=== PATIENT | female | born 1975 | race American Indian/Alaskan Native ===

== ENCOUNTER 2016-08-07 18:21 | Emergency (ER) | payer MEDICAID ==
[2016-08-07 18:49] VITALS: BP 137/74
== END 2016-08-07 21:48 | disposition left against medical advice (07) ==
LOC: DL.ED 18:21
DX: Z53.21 Procedure and treatment not carried out due to patient leaving prior to being seen by health care provider (principal)
CPT/HCPCS: 99282

== ENCOUNTER 2016-09-04 19:54 | Emergency (ER) | payer MEDICAID ==
[2016-09-04 21:24] VITALS: BP 134/81
== END 2016-09-04 22:08 | disposition left against medical advice (07) ==
LOC: DL.ED 19:54
DX: Z53.21 Procedure and treatment not carried out due to patient leaving prior to being seen by health care provider (principal)

== ENCOUNTER 2016-09-19 14:26 | Emergency (ER) | payer MEDICAID ==
--- NOTE | 2016-09-19 15:12 | EDM.PDOC ---
ED HPI GENERAL MEDICAL PROBLEM - General Chief Complaint: Skin Complaint Stated Complaint: RT LEG BLEEDING Time Seen by Provider: 09/19/16 15:09 Source of Information: Reports: Patient History Limitations: Reports: No Limitations - History of Present Illness INITIAL COMMENTS - FREE TEXT/NARRATIVE: Pt states that she has a wound to her right tay that would not stop bleeding. States that she had a bug bite that she scratched and it has gotten worse. Open ulcer appearing wound to right tay. Bleeding controlled currently. no drainage noted Onset Date: 08/29/16 Associated Symptoms: Reports: No Other Symptoms - Related Data Allergies Allergy/AdvReac Type Severity Reaction Status Date / Time No Known Allergies Allergy Verified 09/19/16 14:43 Home Meds: Home Meds Ibuprofen 400 mg PO Q6H PRN 12/28/14 [History] Past Medical History - Past Health History Medical/Surgical History: Denies Medical/Surgical History HEENT History: Reports: None Cardiovascular History: Reports: Other (See Below) Other Cardiovascular History: VARICOSE VEINS Respiratory History: Reports: Bronchitis, Recurrent Other Respiratory History: HX OF UPPER RESPIRATORY INFECTION Gastrointestinal History: Reports: None Genitourinary History: Reports: None Other Musculoskeletal History: RIGHT TENNIS ELBOW Neurological History: Reports: None Psychiatric History: Reports: None Endocrine/Metabolic History: Reports: None Hematologic History: Reports: None Immunologic History: Reports: None Oncologic (Cancer) History: Reports: None Dermatologic History: Reports: None - Infectious Disease History Infectious Disease History: Reports: Chicken Pox - Past Surgical History Head Surgeries/Procedures: Reports: None Other Female Surgeries/Procedures: IUD IMPLANT Musculoskeletal Surgical History: Reports: Other (See Below) Other Musculoskeletal Surgeries/Procedures:: right ankle surgery Social & Family History - Family History Family Medical History: Noncontributory - Tobacco Use Smoking Status *Q: Never Smoker Second Hand Smoke Exposure: No - Caffeine Use Caffeine Use: Reports: Soda - Alcohol Use Days Per Week of Alcohol Use: 0 - Recreational Drug Use Recreational Drug Use: No ED ROS GENERAL - Review of Systems Review Of Systems: ROS reveals no pertinent complaints other than HPI. ED EXAM, SKIN/RASH Exam: See Below Exam Limited By: No Limitations General Appearance: Alert, WD/WN, No Apparent Distress Respiratory/Chest: No Respiratory Distress, Lungs Clear, Normal Breath Sounds, No Accessory Muscle Use, Chest Non-Tender Cardiovascular: Normal Peripheral Pulses, Regular Rate, Rhythm, No Edema, No Gallop, No JVD, No Murmur, No Rub Extremities: Normal Inspection, Normal Range of Motion, Non-Tender, No Pedal Edema, Normal Capillary Refill Skin: Warm, Dry, Erythema, Increased Warmth, Wound/Incision (ulcer appearing wound approximately 1.5 cm in diameter. ) Location, Skin: Lower Extremity, Right Characteristics: Confluent, Erythematous Associated features: Warmth, Induration, Inflammation Course - Vital Signs Last Recorded V/S: Last Vital Signs Temp 96.8 F 09/19/16 15:47 Pulse 79 09/19/16 15:47 Resp 18 09/19/16 15:47 BP 120/70 09/19/16 15:47 Pulse Ox 98 09/19/16 15:47 - Orders/Labs/Meds Orders: Active Orders 24 hr Category Date Time Status CBC WITH AUTO DIFF [HEME] Stat Lab 09/19/16 15:20 Results SEDIMENTATION RATE MANUAL [HEME] Stat Lab 09/19/16 15:20 Results Labs: Laboratory Tests 09/19/16 09/19/16 09/19/16 Range/Units 15:20 15:20 15:20 WBC 8.1 (5.0-10.0) 10^3/uL RBC 4.70 (4.2-5.4) 10^6/uL Hgb 12.5 (12.0-16.0) g/dL Hct 38.1 (37.0-47.0) % MCV 81.1 (80-100) fL MCH 26.6 L (27.0-34.0) pg MCHC 32.8 L (33.0-35.0) g/dL Plt Count 308 (150-450) 10^3/uL Neut % (Auto) 59.3 (42.2-75.2) % Lymph % (Auto) 27.7 (20.5-50.1) % [place] % (Auto) 7.1 (2-8) % Eos % (Auto) 5.5 H (1.0-3.0) % Baso % (Auto) 0.4 (0.0-1.0) % Sodium 137 (135-145) mmol/L Potassium 3.6 (3.6-5.0) mmol/L Chloride 104 (101-111) mmol/L Carbon Dioxide 26.0 (21.0-31.0) mmol/L Anion Gap 10.6 BUN 10 (7-18) mg/dL Creatinine 0.7 (0.6-1.3) mg/dL Est Cr Clr Drug Dosing 105.83 mL/min Estimated GFR (MDRD) > 60 Glucose 99 (74-105) mg/dL Lactic Acid 1.3 (0.5-2.2) mmol/L Calcium 8.4 (8.4-10.2) mg/dl C-Reactive Protein (0.0-1.3) mg/dL 09/19/16 Range/Units 15:20 WBC (5.0-10.0) 10^3/uL RBC (4.2-5.4) 10^6/uL Hgb (12.0-16.0) g/dL Hct (37.0-47.0) % MCV (80-100) fL MCH (27.0-34.0) pg MCHC (33.0-35.0) g/dL Plt Count (150-450) 10^3/uL Neut % (Auto) (42.2-75.2) % Lymph % (Auto) (20.5-50.1) % [place] % (Auto) (2-8) % Eos % (Auto) (1.0-3.0) % Baso % (Auto) (0.0-1.0) % Sodium (135-145) mmol/L Potassium (3.6-5.0) mmol/L Chloride (101-111) mmol/L Carbon Dioxide (21.0-31.0) mmol/L Anion Gap BUN (7-18) mg/dL Creatinine (0.6-1.3) mg/dL Est Cr Clr Drug Dosing mL/min Estimated GFR (MDRD) Glucose (74-105) mg/dL Lactic Acid (0.5-2.2) mmol/L Calcium (8.4-10.2) mg/dl C-Reactive Protein 1.3 (0.0-1.3) mg/dL - Re-Assessments/Exams Free Text/Narrative Re-Assessment/Exam: 09/19/16 17:03 Spoke with lab who states that pt's ESR is 20. Will dc patient Departure - Departure Time of Disposition: 17:03 Disposition: Home, Self-Care 01 Condition: Good Clinical Impression: Open wound of leg without complication Qualifiers: Encounter type: initial encounter Laterality: left Qualified Code(s): S81.802A - Unspecified open wound, left lower leg, initial encounter - Discharge Information Instructions: Animal Bite, [id number], Wound Infection, [id number] Forms: ED Department Discharge Additional Instructions: Take the bactrim for 1 week. Follow up in clinic for evaluation of wound. You may need further treatment is not healing. Keep the wound clean and dry. - My Orders Last 24 Hours: My Active Orders 09/19/16 15:20 CBC WITH AUTO DIFF [HEME] Stat SEDIMENTATION RATE MANUAL [HEME] Stat - Assessment/Plan Last 24 Hours: My Active Orders 09/19/16 15:20 CBC WITH AUTO DIFF [HEME] Stat SEDIMENTATION RATE MANUAL [HEME] Stat
[2016-09-19 15:47] VITALS: BP 120/70
[2016-09-19 15:48] LABS: CHLORIDE,CL 104 mmol/L (101-111); SODIUM,NA 137 mmol/L (135-145)
== END 2016-09-19 17:25 | disposition home or self-care (01) ==
LOC: DL.ED 14:26
DX: S81.801A Unspecified open wound, right lower leg, initial encounter (principal); W57.XXXA Bitten or stung by nonvenomous insect and other nonvenomous arthropods, initial encounter
CPT/HCPCS: 36415; 80048; 83605; 85025; 85651; 86140; 99283

== ENCOUNTER 2017-03-22 20:31 | Emergency (ER) | payer MEDICAID | END 2017-03-22 22:41 | disposition left against medical advice (07) | LOC: DL.ED 20:31 | DX: Z53.21 Procedure and treatment not carried out due to patient leaving prior to being seen by health care provider (principal) ==

== ENCOUNTER 2017-03-24 11:39 | Emergency (ER) | payer MEDICAID ==
[2017-03-24] MEDS ORDERED: Lidocaine 1% 30 ML SDV INJECT ONE (12:11)
--- NOTE | 2017-03-24 13:02 | EDM.PDOC ---
ED HPI GENERAL MEDICAL PROBLEM - General Chief Complaint: Back Pain or Injury Stated Complaint: LOWER BACK PAIN Time Seen by Provider: 03/24/17 12:00 Source of Information: Reports: Patient, RN, RN Notes Reviewed History Limitations: Reports: No Limitations - History of Present Illness INITIAL COMMENTS - FREE TEXT/NARRATIVE: Pt presents to the ER with c/o back pain which began on Saturday. She denies injury, heavy lifting, repetitive motion, or prior back problems. She states the pain is more intense when putting weight on the right leg, as pain shoots down the right leg. She states it feels better to sit forward. Pt denies numbness and tingling. She rates the pain 5/10. She also states she has a painful lump on her right calf that developed yesterday. Onset: Sudden Onset Date: 03/22/17 Location: Reports: Back, Lower Extremity, Right Quality: Reports: Stabbing, Throbbing Improves with: Reports: None Worsens with: Reports: None Associated Symptoms: Reports: No Other Symptoms. Denies: Fever/Chills, Nausea/ Vomiting, Shortness of Breath Right Lower Back Pain Score (Numeric/FACES): 5 - Related Data Allergies Allergy/AdvReac Type Severity Reaction Status Date / Time No Known Allergies Allergy Verified 03/24/17 11:55 Home Meds: Home Meds Ibuprofen 400 mg PO Q6H PRN 12/28/14 [History] Past Medical History - Past Health History Medical/Surgical History: Denies Medical/Surgical History HEENT History: Reports: None Cardiovascular History: Reports: Other (See Below) Other Cardiovascular History: VARICOSE VEINS Respiratory History: Reports: Bronchitis, Recurrent Other Respiratory History: HX OF UPPER RESPIRATORY INFECTION Gastrointestinal History: Reports: None Genitourinary History: Reports: None Other Musculoskeletal History: RIGHT TENNIS ELBOW Neurological History: Reports: None Psychiatric History: Reports: None Endocrine/Metabolic History: Reports: None Hematologic History: Reports: None Immunologic History: Reports: None Oncologic (Cancer) History: Reports: None Dermatologic History: Reports: None - Infectious Disease History Infectious Disease History: Reports: Chicken Pox - Past Surgical History Head Surgeries/Procedures: Reports: None Other Female Surgeries/Procedures: IUD IMPLANT Musculoskeletal Surgical History: Reports: Other (See Below) Other Musculoskeletal Surgeries/Procedures:: right ankle surgery Social & Family History - Family History Family Medical History: Noncontributory - Tobacco Use Smoking Status *Q: Never Smoker Second Hand Smoke Exposure: No - Caffeine Use Caffeine Use: Reports: Coffee, Soda - Alcohol Use Days Per Week of Alcohol Use: 0 - Recreational Drug Use Recreational Drug Use: No ED ROS GENERAL - Review of Systems Review Of Systems: ROS reveals no pertinent complaints other than HPI. ED EXAM, SKIN/RASH Exam: See Below Exam Limited By: No Limitations General Appearance: Alert, WD/WN, Mild Distress Eye Exam: Bilateral Eye: EOMI, Normal Inspection Ears: Normal External Exam, Hearing Grossly Normal Nose: Normal Inspection Throat/Mouth: Normal Inspection, Normal Voice, No Airway Compromise Head: Atraumatic, Normocephalic Neck: Normal Inspection, Supple, Non-Tender, Full Range of Motion Respiratory/Chest: No Respiratory Distress, Lungs Clear, Normal Breath Sounds, No Accessory Muscle Use, Chest Non-Tender Cardiovascular: Normal Peripheral Pulses, Regular Rate, Rhythm, No Edema, No Gallop, No JVD, No Murmur, No Rub Peripheral Pulses: 2+: Radial (L), Radial (R), Dorsalis Pedis (L), Dorsalis Pedis (R) GI/Abdominal: Normal Bowel Sounds, Soft, Non-Tender, No Organomegaly, No Distention, No Abnormal Bruit, No Mass (Female) Exam: Deferred Rectal (Female) Exam: Deferred Back Exam: Normal Inspection, CVA Tenderness (R), Decreased Range of Motion Extremities: Leg Pain, Limited Range of Motion (right leg), Increased Warmth ( right calf) Neurological: Alert, Oriented, CN II-XII Intact, Normal Cognition, Normal Reflexes, No Motor/Sensory Deficits Psychiatric: Normal Affect, Normal Mood, Tearful Skin: Warm, Dry, Intact, Normal Color, No Rash Location, Skin: Lower Extremity, Right Lymphatic: No Adenopathy Course - Vital Signs Last Recorded V/S: Last Vital Signs Temp 97.6 F 03/24/17 11:55 Pulse 95 03/24/17 11:55 Resp 20 03/24/17 11:55 BP 109/46 L 03/24/17 13:22 Pulse Ox 95 03/24/17 11:55 - Orders/Labs/Meds Orders: Active Orders 24 hr Category Date Time Status Peripheral IV Care [RC] . DIRECTED Care 03/24/17 13:56 Active CULTURE WOUND [RM] Stat Lab 03/24/17 12:45 Received Peripheral IV Insertion Adult [OM.PC] Stat Oth 03/24/17 13:56 Ordered Labs: Laboratory Tests 03/24/17 03/24/17 03/24/17 Range/Units 12:45 13:17 13:17 WBC 8.4 (5.0-10.0) 10^3/uL RBC 4.79 (4.2-5.4) 10^6/uL Hgb 12.6 (12.0-16.0) g/dL Hct 39.1 (37.0-47.0) % MCV 81.6 (80-100) fL MCH 26.3 L (27.0-34.0) pg MCHC 32.2 L (33.0-35.0) g/dL Plt Count 337 (150-450) 10^3/uL Neut % (Auto) 69.7 (42.2-75.2) % Lymph % (Auto) 21.6 (20.5-50.1) % [place] % (Auto) 5.8 (2-8) % Eos % (Auto) 2.5 (1.0-3.0) % Baso % (Auto) 0.4 (0.0-1.0) % D-Dimer, Quantitative 322 (0-400) ng/mL Sodium (135-145) mmol/L Potassium (3.6-5.0) mmol/L Chloride (101-111) mmol/L Carbon Dioxide (21.0-31.0) mmol/L Anion Gap BUN (7-18) mg/dL Creatinine (0.6-1.3) mg/dL Est Cr Clr Drug Dosing mL/min Estimated GFR (MDRD) BUN/Creatinine Ratio Glucose (74-105) mg/dL Calcium (8.4-10.2) mg/dl Total Bilirubin (0.2-1.0) mg/dL AST (10-42) IU/L ALT (10-60) IU/L Alkaline Phosphatase (42-121) IU/L Total Protein (6.7-8.2) g/dl Albumin (3.2-5.5) g/dl Globulin Albumin/Globulin Ratio Urine Color Red (YELLOW) Urine Appearance Cloudy (CLEAR) Urine pH 6.0 (5.0-9.0) Ur Specific [place] 1.020 (1.005-1.030) Urine Protein >=300 H (NEGATIVE) Urine Glucose (UA) Negative (NEGATIVE) Urine Ketones Trace H (NEGATIVE) Urine Occult Blood Large H (NEGATIVE) Urine Nitrite Negative (NEGATIVE) Urine Bilirubin Moderate H (NEGATIVE) Urine Urobilinogen 2.0 H (0.2-1.0) mg/dL Ur Leukocyte Esterase Small H (NEGATIVE) Urine RBC 20-30 H /HPF Urine WBC 10-20 H (0-5/HPF) /HPF Ur Epithelial Cells Many H /HPF Amorphous Sediment Few (0/HPF) /HPF Urine Bacteria Moderate H (0-FEW/HPF) /HPF Urine Mucus Few H /LPF 03/24/17 Range/Units 13:17 WBC (5.0-10.0) 10^3/uL RBC (4.2-5.4) 10^6/uL Hgb (12.0-16.0) g/dL Hct (37.0-47.0) % MCV (80-100) fL MCH (27.0-34.0) pg MCHC (33.0-35.0) g/dL Plt Count (150-450) 10^3/uL Neut % (Auto) (42.2-75.2) % Lymph % (Auto) (20.5-50.1) % [place] % (Auto) (2-8) % Eos % (Auto) (1.0-3.0) % Baso % (Auto) (0.0-1.0) % D-Dimer, Quantitative (0-400) ng/mL Sodium 136 (135-145) mmol/L Potassium 3.9 (3.6-5.0) mmol/L Chloride 103 (101-111) mmol/L Carbon Dioxide 27.0 (21.0-31.0) mmol/L Anion Gap 9.9 BUN 11 (7-18) mg/dL Creatinine 0.7 (0.6-1.3) mg/dL Est Cr Clr Drug Dosing 103.89 mL/min Estimated GFR (MDRD) > 60 BUN/Creatinine Ratio 15.71 Glucose 98 (74-105) mg/dL Calcium 8.7 (8.4-10.2) mg/dl Total Bilirubin 0.7 (0.2-1.0) mg/dL AST 18 (10-42) IU/L ALT 11 (10-60) IU/L Alkaline Phosphatase 93 (42-121) IU/L Total Protein 8.3 H (6.7-8.2) g/dl Albumin 3.3 (3.2-5.5) g/dl Globulin 5.0 Albumin/Globulin Ratio 0.66 Urine Color (YELLOW) Urine Appearance (CLEAR) Urine pH (5.0-9.0) Ur Specific [place] (1.005-1.030) Urine Protein (NEGATIVE) Urine Glucose (UA) (NEGATIVE) Urine Ketones (NEGATIVE) Urine Occult Blood (NEGATIVE) Urine Nitrite (NEGATIVE) Urine Bilirubin (NEGATIVE) Urine Urobilinogen (0.2-1.0) mg/dL Ur Leukocyte Esterase (NEGATIVE) Urine RBC /HPF Urine WBC (0-5/HPF) /HPF Ur Epithelial Cells /HPF Amorphous Sediment (0/HPF) /HPF Urine Bacteria (0-FEW/HPF) /HPF Urine Mucus /LPF Meds: Medications Discontinued Medications Generic Name Dose Route Start Last Admin Trade Name Freq PRN Reason Stop Dose Admin Sodium Chloride 1,000 mls @ 999 mls/hr 03/24/17 13:56 03/24/17 14:04 Normal Saline IV 03/24/17 14:56 999 mls/hr .BOLUS ONE Administration Lidocaine HCl 30 ml 03/24/17 12:11 03/24/17 12:15 Xylocaine-Mpf 1% INJECT 03/24/17 12:12 30 ml ONETIME ONE Administration Methylprednisolone Sodium Succinate 125 mg 03/24/17 15:17 03/24/17 15:21 Solu-Medrol IVPUSH 03/24/17 15:18 125 mg ONETIME ONE Administration Sodium Chloride 10 ml 03/24/17 13:56 03/24/17 14:04 Saline Flush FLUSH 10 ml ASDIRECTED PRN Administration Keep Vein Open - Radiology Interpretation Free Text/Narrative:: CT abdomen and pelvis: Left adnexal dermoid tumor. Malpositioned intrauterine device. Distended gallbladder. See Rad report. Departure - Departure Time of Disposition: 15:12 Disposition: Home, Self-Care 01 Condition: Fair Clinical Impression: Lumbosacral radiculopathy, Abscess, Bacterial vaginal infection - Discharge Information Instructions: Back Injury Prevention, [id number], Muscle Strain, Qxtu-en-Oohs , Back Pain, Adult, [id number]-[id number] Referrals: PCP,None [Primary Care Provider] - Forms: ED Department Discharge Additional Instructions: RX: Medrol dose pack, Bactrim, Doxycycline, Metrodiazole Follow up with your primary care facility next week - My Orders Last 24 Hours: My Active Orders 03/24/17 12:45 CULTURE WOUND [RM] Stat 03/24/17 13:56 Peripheral IV Care [RC] . DIRECTED Peripheral IV Insertion Adult [OM.PC] Stat - Assessment/Plan Last 24 Hours: My Active Orders 03/24/17 12:45 CULTURE WOUND [RM] Stat 03/24/17 13:56 Peripheral IV Care [RC] . DIRECTED Peripheral IV Insertion Adult [OM.PC] Stat
[2017-03-24 13:23] VITALS: BP 109/46
[2017-03-24] MEDS ORDERED: Sodium Chloride 0.9% 10 ML Syringe FLUSH PRN (13:56)
[2017-03-24] MEDS ORDERED: Sodium Chloride 0.9% 1,000 ML IV ONE (13:56)
[2017-03-24 13:58] LABS: ANION GAP 9.9; CHLORIDE,CL 103 mmol/L (101-111); SODIUM,NA 136 mmol/L (135-145)
[2017-03-24] MEDS ORDERED: methylPREDNISolone Sodium Succinate 125 MG/2 ML SDV IVPUSH ONE (15:17)
== END 2017-03-24 15:33 | disposition home or self-care (01) ==
LOC: DL.ED 11:39
DX: M54.17 Radiculopathy, lumbosacral region (principal); L02.415 Cutaneous abscess of right lower limb; N76.0 Acute vaginitis
CPT/HCPCS: 36415; 74176; 80053; 81001; 85025; 85379; 87070; 96361; 96374; 99283; J2930; J7030; J7050; 87077; 87186

== ENCOUNTER 2017-03-30 20:38 | Emergency (ER) | payer MEDICAID ==
[2017-03-30 21:55] VITALS: BP 121/69
[2017-03-30 22:08] LABS: CHLORIDE,CL 98 mmol/L (101-111); SODIUM,NA 135 mmol/L (135-145)
--- NOTE | 2017-03-30 22:46 | EDM.PDOC ---
ED HPI GENERAL MEDICAL PROBLEM - General Chief Complaint: Skin Complaint Stated Complaint: SORE ON LEG, [id number] Time Seen by Provider: 03/30/17 21:00 Source of Information: Reports: Patient History Limitations: Reports: No Limitations - History of Present Illness INITIAL COMMENTS - FREE TEXT/NARRATIVE: ED with c/o increased pain and swelling to right calf with pain radiating back of thigh into buttock. Was seen one week ago with cellulitis and started antibiotics, Reports has continued to take as prescribed. Swlling worsening since last gonzales. Notes less itching to lower leg than prior,. Has remote hx of cellutits to leg. 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 Right Knee Pain Score (Numeric/FACES): 6 - Related Data Allergies Allergy/AdvReac Type Severity Reaction Status Date / Time No Known Allergies Allergy Verified 03/30/17 20:47 Home Meds: Home Meds Ibuprofen 400 mg PO Q6H PRN 12/28/14 [History] Past Medical History - Past Health History Medical/Surgical History: Denies Medical/Surgical History HEENT History: Reports: None Cardiovascular History: Reports: Other (See Below) Other Cardiovascular History: VARICOSE VEINS Respiratory History: Reports: Bronchitis, Recurrent Other Respiratory History: HX OF UPPER RESPIRATORY INFECTION Gastrointestinal History: Reports: None Genitourinary History: Reports: None Other Musculoskeletal History: RIGHT TENNIS ELBOW Neurological History: Reports: None Psychiatric History: Reports: None Endocrine/Metabolic History: Reports: None Hematologic History: Reports: None Immunologic History: Reports: None Oncologic (Cancer) History: Reports: None Dermatologic History: Reports: None - Infectious Disease History Infectious Disease History: Reports: Chicken Pox - Past Surgical History Head Surgeries/Procedures: Reports: None Other Female Surgeries/Procedures: IUD IMPLANT Musculoskeletal Surgical History: Reports: Other (See Below) Other Musculoskeletal Surgeries/Procedures:: right ankle surgery Social & Family History - Family History Family Medical History: Noncontributory - Tobacco Use Smoking Status *Q: Never Smoker Second Hand Smoke Exposure: No - Caffeine Use Caffeine Use: Reports: Soda - Alcohol Use Days Per Week of Alcohol Use: 0 - Recreational Drug Use Recreational Drug Use: No ED ROS GENERAL - Review of Systems Review Of Systems: See Below Constitutional: Reports: No Symptoms HEENT: Reports: No Symptoms Respiratory: Reports: No Symptoms Cardiovascular: Reports: No Symptoms Endocrine: Reports: No Symptoms GI/Abdominal: Reports: No Symptoms Musculoskeletal: Reports: Leg Pain, Muscle Stiffness Skin: Reports: Rash, Wound, Lumps (right lower leg) ED EXAM, SKIN/RASH Exam: See Below Exam Limited By: No Limitations General Appearance: Alert, Mild Distress Eye Exam: Bilateral Eye: EOMI Ears: Normal External Exam Nose: Normal Inspection Throat/Mouth: Normal Inspection, Normal Lips Head: Atraumatic, Normocephalic Neck: Normal Inspection, Supple, Full Range of Motion Respiratory/Chest: No Respiratory Distress, Lungs Clear, Normal Breath Sounds Cardiovascular: Normal Peripheral Pulses, Regular Rate, Rhythm Peripheral Pulses: 2+: Dorsalis Pedis (R) GI/Abdominal: Normal Bowel Sounds Extremities: Pedal Edema, Leg Pain, Increased Warmth, Redness, Other (right leg swelling from forefoot to above knee. Redness, large frim lump to posterior calf , tender to area, pain radiating from calf to buttock with palpation multiple scabbed area to right lower leg, purplish discoloration. Pedal pulse present ) Neurological: Alert, Oriented Psychiatric: Normal Affect, Normal Mood Skin: Warm, Wound/Incision Location, Skin: Lower Extremity, Right Characteristics: Maculopapular Associated features: Warmth, Tenderness, Swelling, Induration Course - Vital Signs Last Recorded V/S: Last Vital Signs Temp 97.6 F 03/30/17 21:54 Pulse 79 03/30/17 21:54 Resp 16 03/30/17 21:54 BP 121/69 03/30/17 21:54 Pulse Ox 96 03/30/17 21:54 - Orders/Labs/Meds Orders: Active Orders 24 hr Category Date Time Status CULTURE BLOOD [BC] Stat Lab 03/30/17 21:25 Received CULTURE BLOOD [BC] Stat Lab 03/30/17 21:28 Received Blood Culture x2 Reflex Set [OM.PC] Stat Oth 03/30/17 21:10 Ordered Labs: Laboratory Tests 03/30/17 03/30/17 03/30/17 Range/Units 21:25 21:25 21:25 WBC 9.6 (5.0-10.0) 10^3/uL RBC 4.71 (4.2-5.4) 10^6/uL Hgb 12.3 (12.0-16.0) g/dL Hct 38.6 (37.0-47.0) % MCV 82.0 (80-100) fL MCH 26.1 L (27.0-34.0) pg MCHC 31.9 L (33.0-35.0) g/dL Plt Count 369 (150-450) 10^3/uL Neut % (Auto) 59.2 (42.2-75.2) % Lymph % (Auto) 29.5 (20.5-50.1) % [place] % (Auto) 7.2 (2-8) % Eos % (Auto) 3.9 H (1.0-3.0) % Baso % (Auto) 0.2 (0.0-1.0) % D-Dimer, Quantitative (0-400) ng/mL Sodium 135 (135-145) mmol/L Potassium 3.3 L (3.6-5.0) mmol/L Chloride 98 L (101-111) mmol/L Carbon Dioxide 30.0 (21.0-31.0) mmol/L Anion Gap 10.3 BUN 13 (7-18) mg/dL Creatinine 0.7 (0.6-1.3) mg/dL Est Cr Clr Drug Dosing 105.83 mL/min Estimated GFR (MDRD) > 60 BUN/Creatinine Ratio 18.57 Glucose 86 (74-105) mg/dL Lactic Acid 1.1 (0.5-2.2) mmol/L Calcium 8.7 (8.4-10.2) mg/dl Total Bilirubin 0.4 (0.2-1.0) mg/dL AST 16 (10-42) IU/L ALT 11 (10-60) IU/L Alkaline Phosphatase 98 (42-121) IU/L Total Protein 8.2 (6.7-8.2) g/dl Albumin 3.4 (3.2-5.5) g/dl Globulin 4.8 Albumin/Globulin Ratio 0.71 /09/09 Range/Units 21:25 WBC (5.0-10.0) 10^3/uL RBC (4.2-5.4) 10^6/uL Hgb (12.0-16.0) g/dL Hct (37.0-47.0) % MCV (80-100) fL MCH (27.0-34.0) pg MCHC (33.0-35.0) g/dL Plt Count (150-450) 10^3/uL Neut % (Auto) (42.2-75.2) % Lymph % (Auto) (20.5-50.1) % [place] % (Auto) (2-8) % Eos % (Auto) (1.0-3.0) % Baso % (Auto) (0.0-1.0) % D-Dimer, Quantitative 811 H (0-400) ng/mL Sodium (135-145) mmol/L Potassium (3.6-5.0) mmol/L Chloride (101-111) mmol/L Carbon Dioxide (21.0-31.0) mmol/L Anion Gap BUN (7-18) mg/dL Creatinine (0.6-1.3) mg/dL Est Cr Clr Drug Dosing mL/min Estimated GFR (MDRD) BUN/Creatinine Ratio Glucose (74-105) mg/dL Lactic Acid (0.5-2.2) mmol/L Calcium (8.4-10.2) mg/dl Total Bilirubin (0.2-1.0) mg/dL AST (10-42) IU/L ALT (10-60) IU/L Alkaline Phosphatase (42-121) IU/L Total Protein (6.7-8.2) g/dl Albumin (3.2-5.5) g/dl Globulin Albumin/Globulin Ratio Meds: Medications Discontinued Medications Generic Name Dose Route Start Last Admin Trade Name Freq PRN Reason Stop Dose Admin Piperacillin Sod/Tazobactam 100 mls @ 200 mls/hr 03/30/17 22:51 03/30/17 23: 08 Sod 3.375 gm/ Sodium Chloride IV 03/30/17 23:20 200 mls/hr ONETIME ONE Administration Morphine Sulfate 2 mg 03/30/17 22:52 03/30/17 23:05 Morphine IVPUSH 03/30/17 22:53 2 mg ONETIME ONE Administration Ondansetron HCl 4 mg 03/30/17 22:52 03/30/17 23:03 Zofran IV 03/30/17 22:53 4 mg ONETIME ONE Administration Departure - Departure Time of Disposition: 23:05 Disposition: DC/Tfer to Acute Hospital 02 Condition: Good Clinical Impression: Cellulitis of right lower leg, Positive D-dimer, Lumbosacral radiculopathy Low back pain Qualifiers: Chronicity: unspecified Back pain laterality: unspecified Sciatica presence: unspecified whether sciatica present Qualified Code(s): M54.5 - Low back pain - Discharge Information Forms: ED Department Discharge - My Orders Last 24 Hours: My Active Orders 03/30/17 21:10 Blood Culture x2 Reflex Set [OM.PC] Stat 03/30/17 21:25 CULTURE BLOOD [BC] Stat 03/30/17 21:28 CULTURE BLOOD [BC] Stat - Assessment/Plan Last 24 Hours: My Active Orders 03/30/17 21:10 Blood Culture x2 Reflex Set [OM.PC] Stat 03/30/17 21:25 CULTURE BLOOD [BC] Stat 03/30/17 21:28 CULTURE BLOOD [BC] Stat
[2017-03-30] MEDS ORDERED: Piperacillin/Tazobactam 3.375 GM in Sodium Chloride 0.9% 100 ML IV ONE (22:51)
[2017-03-30] MEDS ORDERED: Ondansetron 4 MG/2 ML SDV IV ONE (22:52)
[2017-03-30] MEDS ORDERED: Morphine 2 MG/ML Syringe IVPUSH ONE (22:52)
== END 2017-03-30 23:26 ==
LOC: DL.ED 20:38
DX: L03.115 Cellulitis of right lower limb (principal); M54.17 Radiculopathy, lumbosacral region; R79.1 Abnormal coagulation profile
CPT/HCPCS: 36415; 80053; 83605; 85025; 85379; 87040; 96365; 96375; 99284; J2270; J2405; J2543; J7050

== ENCOUNTER 2017-04-02 11:19 | Emergency (ER) | payer MEDICAID ==
[2017-04-02 11:32] VITALS: BP 105/55
[2017-04-02] MEDS ORDERED: HYDROmorphone 1 MG/ML Syringe IVPUSH ONE (11:49)
[2017-04-02 12:14] LABS: ANION GAP 11.3; CHLORIDE,CL 101 mmol/L (101-111); SODIUM,NA 134 mmol/L (135-145)
--- NOTE | 2017-04-02 12:21 | EDM.PDOC ---
ED HPI GENERAL MEDICAL PROBLEM - General Chief Complaint: Back Pain or Injury Stated Complaint: IN BY AMBULANCE Time Seen by Provider: 04/02/17 11:40 Source of Information: Reports: Patient, RN, RN Notes Reviewed History Limitations: Reports: No Limitations - History of Present Illness INITIAL COMMENTS - FREE TEXT/NARRATIVE: Pt presents to the ER per [facility] with c/o severe right flank pain. She states this pain has been ongoing for quite some time. She was last seen for the pain, as well as pain in the right lower leg, on 03/30/17, at which time she was transferred to by ambulance. She was discharged from [facility] in yesterday. She returns with increased pain in the right flank, rating the pain at an 8, as well as pain in the right calf radiating up the back of the leg to the buttock area. Onset: Gradual, Unknown/Unsure Duration: Getting Worse Location: Reports: Back Quality: Reports: Stabbing, Throbbing Severity: Moderate Improves with: Reports: None Worsens with: Reports: Movement Associated Symptoms: Reports: No Other Symptoms Right Lower Back Pain Score (Numeric/FACES): 9 - Related Data Allergies Allergy/AdvReac Type Severity Reaction Status Date / Time No Known Allergies Allergy Verified 03/30/17 20:47 Home Meds: Home Meds Ibuprofen 400 mg PO Q6H PRN 12/28/14 [History] Linezolid [Zyvox] 600 mg PO BID 04/02/17 [History] Past Medical History - Past Health History Medical/Surgical History: Denies Medical/Surgical History HEENT History: Reports: None Cardiovascular History: Reports: Other (See Below) Other Cardiovascular History: VARICOSE VEINS Respiratory History: Reports: Bronchitis, Recurrent Other Respiratory History: HX OF UPPER RESPIRATORY INFECTION Gastrointestinal History: Reports: None Genitourinary History: Reports: None Other Musculoskeletal History: RIGHT TENNIS ELBOW Neurological History: Reports: None Psychiatric History: Reports: None Endocrine/Metabolic History: Reports: None Hematologic History: Reports: None Immunologic History: Reports: None Oncologic (Cancer) History: Reports: None Dermatologic History: Reports: None - Infectious Disease History Infectious Disease History: Reports: Chicken Pox - Past Surgical History Head Surgeries/Procedures: Reports: None Other Female Surgeries/Procedures: IUD IMPLANT Musculoskeletal Surgical History: Reports: Other (See Below) Other Musculoskeletal Surgeries/Procedures:: right ankle surgery Social & Family History - Family History Family Medical History: Noncontributory - Tobacco Use Smoking Status *Q: Never Smoker Second Hand Smoke Exposure: No - Caffeine Use Caffeine Use: Reports: Soda, Tea - Alcohol Use Days Per Week of Alcohol Use: 0 - Recreational Drug Use Recreational Drug Use: No ED ROS GENERAL - Review of Systems Review Of Systems: ROS reveals no pertinent complaints other than HPI. ED EXAM, GENERAL - Physical Exam Exam: See Below Exam Limited By: No Limitations General Appearance: Alert, WD/WN, Moderate Distress Eye Exam: Bilateral Eye: EOMI, Normal Inspection, PERRL Ears: Normal External Exam, Hearing Grossly Normal Nose: Normal Inspection Throat/Mouth: Normal Inspection, Normal Voice, No Airway Compromise Head: Atraumatic, Normocephalic Neck: Normal Inspection, Supple, Non-Tender, Full Range of Motion Respiratory/Chest: No Respiratory Distress, Lungs Clear, Normal Breath Sounds, No Accessory Muscle Use, Chest Non-Tender Cardiovascular: Normal Peripheral Pulses, Regular Rate, Rhythm, No Edema, No Gallop, No JVD, No Murmur, No Rub Peripheral Pulses: 2+: Radial (L), Radial (R), Dorsalis Pedis (L), Dorsalis Pedis (R) GI/Abdominal: Normal Bowel Sounds, Soft, Non-Tender, No Organomegaly, No Distention, No Abnormal Bruit, No Mass (Female) Exam: Deferred Rectal (Female) Exam: Deferred Back Exam: Normal Inspection, CVA Tenderness (R), Decreased Range of Motion, Muscle Spasm Extremities: Leg Pain, Limited Range of Motion, Increased Warmth, Redness, Other (Right lower leg wrapped with ANNA for circulation. ) Neurological: Alert, Oriented, CN II-XII Intact, Normal Cognition, Normal Gait, No Motor/Sensory Deficits Psychiatric: Normal Affect, Normal Mood Skin Exam: Warm, Dry, Intact, Normal Color, Other (Several areas of excoriation and different stages of healing on the lower legs) Lymphatic: No Adenopathy Course - Vital Signs Last Recorded V/S: Last Vital Signs Temp 97.8 F 04/02/17 11:31 Pulse 104 H 04/02/17 11:31 Resp 16 04/02/17 11:31 BP 105/55 L 04/02/17 11:31 Pulse Ox 97 04/02/17 11:31 - Orders/Labs/Meds Orders: Active Orders 24 hr Category Date Time Status Abdomen Ltd [US] Urgent Exams 04/02/17 11:46 Ordered Labs: Laboratory Tests 04/02/17 04/02/17 04/02/17 Range/Units 11:47 11:47 11:47 WBC 8.3 (5.0-10.0) 10^3/uL RBC 4.58 (4.2-5.4) 10^6/uL Hgb 11.8 L (12.0-16.0) g/dL Hct 37.3 (37.0-47.0) % MCV 81.4 (80-100) fL MCH 25.8 L (27.0-34.0) pg MCHC 31.6 L (33.0-35.0) g/dL Plt Count 339 (150-450) 10^3/uL Neut % (Auto) 71.3 (42.2-75.2) % Lymph % (Auto) 18.3 L (20.5-50.1) % Island % (Auto) 7.0 (2-8) % Eos % (Auto) 3.2 H (1.0-3.0) % Baso % (Auto) 0.2 (0.0-1.0) % PT 10.5 (9.0-12.0) SEC INR 1.0 (0.9-1.2) D-Dimer, Quantitative 658 H (0-400) ng/mL Sodium 134 L (135-145) mmol/L Potassium 3.3 L (3.6-5.0) mmol/L Chloride 101 (101-111) mmol/L Carbon Dioxide 25.0 (21.0-31.0) mmol/L Anion Gap 11.3 BUN 9 (7-18) mg/dL Creatinine 0.8 (0.6-1.3) mg/dL Est Cr Clr Drug Dosing 90.90 mL/min Estimated GFR (MDRD) > 60 BUN/Creatinine Ratio 11.25 Glucose 115 H (74-105) mg/dL Calcium 8.5 (8.4-10.2) mg/dl Total Bilirubin 0.4 (0.2-1.0) mg/dL AST 25 (10-42) IU/L ALT 12 (10-60) IU/L Alkaline Phosphatase 85 (42-121) IU/L Total Protein 7.7 (6.7-8.2) g/dl Albumin 3.1 L (3.2-5.5) g/dl Globulin 4.6 Albumin/Globulin Ratio 0.67 Urine Color (YELLOW) Urine Appearance (CLEAR) Urine pH (5.0-9.0) Ur Specific Randall (1.005-1.030) Urine Protein (NEGATIVE) Urine Glucose (UA) (NEGATIVE) Urine Ketones (NEGATIVE) Urine Occult Blood (NEGATIVE) Urine Nitrite (NEGATIVE) Urine Bilirubin (NEGATIVE) Urine Urobilinogen (0.2-1.0) mg/dL Ur Leukocyte Esterase (NEGATIVE) Urine RBC /HPF Urine WBC (0-5/HPF) /HPF Ur Epithelial Cells /HPF Amorphous Sediment (0/HPF) /HPF Urine Bacteria (0-FEW/HPF) /HPF Urine Mucus /LPF Urine HCG, Qual Urine Opiates Screen (NEGATIVE) Ur Oxycodone Screen (NEGATIVE) Urine Methadone Screen (NEGATIVE) Ur Barbiturates Screen (NEGATIVE) U Tricyclic Antidepress (NEGATIVE) Ur Phencyclidine Scrn (NEGATIVE) Ur Amphetamine Screen (NEGATIVE) U Methamphetamines Scrn (NEGATIVE) Urine MDMA Screen (NEGATIVE) U Benzodiazepines Scrn (NEGATIVE) Urine Cocaine Screen (NEGATIVE) U Marijuana (THC) Screen (NEGATIVE) Ethyl Alcohol < 5 mg/dL 04/02/17 04/02/17 04/02/17 Range/Units 11:57 11:57 11:57 WBC (5.0-10.0) 10^3/uL RBC (4.2-5.4) 10^6/uL Hgb (12.0-16.0) g/dL Hct (37.0-47.0) % MCV (80-100) fL MCH (27.0-34.0) pg MCHC (33.0-35.0) g/dL Plt Count (150-450) 10^3/uL Neut % (Auto) (42.2-75.2) % Lymph % (Auto) (20.5-50.1) % Island % (Auto) (2-8) % Eos % (Auto) (1.0-3.0) % Baso % (Auto) (0.0-1.0) % PT (9.0-12.0) SEC INR (0.9-1.2) D-Dimer, Quantitative (0-400) ng/mL Sodium (135-145) mmol/L Potassium (3.6-5.0) mmol/L Chloride (101-111) mmol/L Carbon Dioxide (21.0-31.0) mmol/L Anion Gap BUN (7-18) mg/dL Creatinine (0.6-1.3) mg/dL Est Cr Clr Drug Dosing mL/min Estimated GFR (MDRD) BUN/Creatinine Ratio Glucose (74-105) mg/dL Calcium (8.4-10.2) mg/dl Total Bilirubin (0.2-1.0) mg/dL AST (10-42) IU/L ALT (10-60) IU/L Alkaline Phosphatase (42-121) IU/L Total Protein (6.7-8.2) g/dl Albumin (3.2-5.5) g/dl Globulin Albumin/Globulin Ratio Urine Color Yellow (YELLOW) Urine Appearance Cloudy (CLEAR) Urine pH 7.5 (5.0-9.0) Ur Specific Randall 1.025 (1.005-1.030) Urine Protein Negative (NEGATIVE) Urine Glucose (UA) Negative (NEGATIVE) Urine Ketones Negative (NEGATIVE) Urine Occult Blood Negative (NEGATIVE) Urine Nitrite Negative (NEGATIVE) Urine Bilirubin Negative (NEGATIVE) Urine Urobilinogen 1.0 (0.2-1.0) mg/dL Ur Leukocyte Esterase Trace H (NEGATIVE) Urine RBC Not seen /HPF Urine WBC 5-10 H (0-5/HPF) /HPF Ur Epithelial Cells Moderate H /HPF Amorphous Sediment Few (0/HPF) /HPF Urine Bacteria Few (0-FEW/HPF) /HPF Urine Mucus Moderate H /LPF Urine HCG, Qual Negative Urine Opiates Screen Positive H (NEGATIVE) Ur Oxycodone Screen Negative (NEGATIVE) Urine Methadone Screen Negative (NEGATIVE) Ur Barbiturates Screen Negative (NEGATIVE) U Tricyclic Antidepress Negative (NEGATIVE) Ur Phencyclidine Scrn Negative (NEGATIVE) Ur Amphetamine Screen Negative (NEGATIVE) U Methamphetamines Scrn Negative (NEGATIVE) Urine MDMA Screen Negative (NEGATIVE) U Benzodiazepines Scrn Negative (NEGATIVE) Urine Cocaine Screen Negative (NEGATIVE) U Marijuana (THC) Screen Negative (NEGATIVE) Ethyl Alcohol mg/dL Meds: Medications Discontinued Medications Generic Name Dose Route Start Last Admin Trade Name Freq PRN Reason Stop Dose Admin Hydromorphone HCl 1 mg 04/02/17 11:49 04/02/17 12:24 Dilaudid IVPUSH 04/02/17 11:50 1 mg ONETIME ONE Administration - Radiology Interpretation Free Text/Narrative:: Lumbar/Sacrum/Coccyx xray: No sign of pathologic skeletal lesion, and no certain fracture or segmental dislocation sacrum/coccyx appreciated on today's exam See rad report - Re-Assessments/Exams Free Text/Narrative Re-Assessment/Exam: 04/02/17 13:27 Pt states last BM was last night. She states she took a stool softener yesterday. Departure - Departure Time of Disposition: 13:34 Disposition: Home, Self-Care 01 Condition: Fair Clinical Impression: Lumbosacral radiculopathy, Positive D-dimer, Cellulitis of right lower extremity Open wound of leg without complication Qualifiers: Encounter type: initial encounter Laterality: left Qualified Code(s): S81.802A - Unspecified open wound, left lower leg, initial encounter - Discharge Information Instructions: Back Injury Prevention, [id number], Muscle Strain, [id number] , Back Pain, Adult, Mwcm-[id number], Pain Medicine Instructions, [id number], Chronic Back Pain Forms: ED Department Discharge Additional Instructions: [facility] Ul[facility]ound at [facility] Radiology department Saturday04-03-17 at 9am (See pamphlet) RX: norflex, diclofenac, norco Follow up with your primary care facility as soon as possible. Use stool softeners and Miralax or generic brand daily. - My Orders Last 24 Hours: My Active Orders 04/02/17 11:46 Abdomen Ltd [US] Urgent - Assessment/Plan Last 24 Hours: My Active Orders 04/02/17 11:46 Abdomen Ltd [US] Urgent
--- NOTE | 2017-04-02 13:10 | CR ---
Clinical history: 41-year-old female with right flank pain (multilevel lower lumbar disc disease and arthritis on plain film of the lumbar spine and suggestion of "nondisplaced sacral fracture one view only). Interpretation: AP lateral views of the sacrum and coccyx confirm chronic lower lumbar disc disease and arthritis of the lumbosacral spine. IUD midline pelvis. No sign of pathologic skeletal lesion, and no certain fracture or segmental dislocation sacrum/coccyx appreciated on today's exam. Symmetric spacing normal-appearing SI joints and midline pubic symphysis.
--- NOTE | 2017-04-02 13:43 | CR ---
CLINICAL HISTORY: 41-year-old female with right flank pain. INTERPRETATION: AP lateral views lumbar spine and sacrum reveal some hypertrophic marginal spondylosi s throughout the thoracolumbar juncture, mid and lower lumbar spine. Transitional S1 vertebral body (lumbarized) but dense endplate sclerosis and hypertrophic marginal sp ondylosis lowest level. Subtle relative narrowing of the intervertebral disc space L5-S1 level again with marginal spondylosi s. No sign of pathologic skeletal lesion, lumbar fracture or spondylolisthesis. Symmetric spacing normal -appearing SI and hip joints. (IUD mid pelvis) . NOTE: Subtle lucent line posteriorly distal sacrum (on lateral view only) that could represent nondis placed fracture. Clinical? CONCLUSION: Chronic arthritic changes dorsal lumbar spine. Transitional S1 vertebral body. Lower lumb ar disc disease. (See comments regarding sacrum above).
== END 2017-04-02 13:52 | disposition home or self-care (01) ==
LOC: DL.ED 11:19
DX: S81.802A Unspecified open wound, left lower leg, initial encounter (principal); L03.115 Cellulitis of right lower limb; M54.17 Radiculopathy, lumbosacral region; R79.1 Abnormal coagulation profile; X58.XXXA Exposure to other specified factors, initial encounter
CPT/HCPCS: 36415; 72100; 72220; 80053; 80305; 81001; 81025; 85025; 85379; 85610; 96374; 99284; G0480; J1170

== ENCOUNTER 2017-04-04 20:12 | Emergency (ER) | payer MEDICAID ==
[2017-04-04 21:43] VITALS: BP 144/67
[2017-04-04] MEDS ORDERED: Ketorolac 30 MG/ML SDV IM ONE (23:28)
--- NOTE | 2017-04-04 23:31 | EDM.PDOC ---
ED HPI GENERAL MEDICAL PROBLEM - General Chief Complaint: Back Pain or Injury Stated Complaint: LOWER BACK PAIN [id number] Time Seen by Provider: 04/04/17 23:23 Source of Information: Reports: Patient, RN, RN Notes Reviewed History Limitations: Reports: No Limitations - History of Present Illness INITIAL COMMENTS - FREE TEXT/NARRATIVE: Pt presents to the ER with c/o low back pain. She states the pain has gotten worse from when she was previously seen. She states she saw someone at [facility] today and was told to use tylenol and ibuprofen as directed for pain. She states she has been doing this. She also states she had a gallbladder US done yesterday. Onset: Gradual Duration: Getting Worse Location: Reports: Back Quality: Reports: Sharp, Stabbing, Throbbing Severity: Moderate Improves with: Reports: None Worsens with: Reports: Movement Associated Symptoms: Reports: No Other Symptoms Treatments MANAGER NICU: Reports: Acetaminophen, NSAIDS Right Lower Back Pain Score (Numeric/FACES): 9 - Related Data Allergies Allergy/AdvReac Type Severity Reaction Status Date / Time No Known Allergies Allergy Verified 04/04/17 21:43 Home Meds: Home Meds Ibuprofen 400 mg PO Q6H PRN 12/28/14 [History] Linezolid [Zyvox] 600 mg PO BID 04/02/17 [History] Past Medical History - Past Health History Medical/Surgical History: Denies Medical/Surgical History HEENT History: Reports: None Cardiovascular History: Reports: Other (See Below) Other Cardiovascular History: VARICOSE VEINS Respiratory History: Reports: Bronchitis, Recurrent Other Respiratory History: HX OF UPPER RESPIRATORY INFECTION Gastrointestinal History: Reports: None Genitourinary History: Reports: None Other Musculoskeletal History: RIGHT TENNIS ELBOW Neurological History: Reports: None Psychiatric History: Reports: None Endocrine/Metabolic History: Reports: None Hematologic History: Reports: None Immunologic History: Reports: None Oncologic (Cancer) History: Reports: None Dermatologic History: Reports: None - Infectious Disease History Infectious Disease History: Reports: Chicken Pox - Past Surgical History Head Surgeries/Procedures: Reports: None Other Female Surgeries/Procedures: IUD IMPLANT Musculoskeletal Surgical History: Reports: Other (See Below) Other Musculoskeletal Surgeries/Procedures:: right ankle surgery Social & Family History - Family History Family Medical History: Noncontributory - Tobacco Use Smoking Status *Q: Never Smoker Second Hand Smoke Exposure: No - Caffeine Use Caffeine Use: Reports: Soda, Tea - Alcohol Use Days Per Week of Alcohol Use: 0 - Recreational Drug Use Recreational Drug Use: No ED ROS GENERAL - Review of Systems Review Of Systems: ROS reveals no pertinent complaints other than HPI. ED EXAM,LOWER BACK PAIN/INJURY - Physical Exam Exam: See Below Exam Limited By: No Limitations General Appearance: Alert, WD/WN, Moderate Distress Eye Exam: Bilateral Eye: EOMI, Normal Inspection Ears: Normal External Exam, Hearing Grossly Normal Nose: Normal Inspection Throat/Mouth: Normal Inspection, Normal Voice, No Airway Compromise Head: Atraumatic, Normocephalic Neck: Normal Inspection, Supple, Non-Tender, Full Range of Motion Respiratory/Chest: No Respiratory Distress, Lungs Clear, Normal Breath Sounds, No Accessory Muscle Use, Chest Non-Tender Cardiovascular: Normal Peripheral Pulses, Regular Rate, Rhythm, No Edema, No Gallop, No JVD, No Murmur, No Rub GI/Abdominal: Normal Bowel Sounds, Soft, Non-Tender, No Distention (Female) Exam: Deferred Rectal (Female) Exam: Deferred Back Exam: Normal Inspection, Decreased Range of Motion, Muscle Spasm Extremities: Normal Inspection, Non-Tender, No Pedal Edema, Normal Capillary Refill, Limited Range of Motion Neurological: Alert, Normal Mood/Affect, Normal Dorsiflexion, CN II-XII Intact, Normal Plantar Flexion, Normal Gait, Normal Reflexes, No Motor/Sensory Deficits , Oriented x 3 Psychiatric: Normal Affect, Normal Mood Skin Exam: Warm, Dry, Intact, Normal Color, Other (continues to deal with excoriation of the lower legs at different stages of healing. Right lower leg wrapped for compression) Lymphatic: No Adenopathy Course - Vital Signs Last Recorded V/S: Last Vital Signs Temp 97.2 F 04/04/17 21:35 Pulse 78 04/04/17 21:35 Resp 18 04/04/17 21:35 BP 144/67 H 04/04/17 21:35 Pulse Ox 99 04/04/17 21:35 - Orders/Labs/Meds Meds: Medications Discontinued Medications Generic Name Dose Route Start Last Admin Trade Name Freq PRN Reason Stop Dose Admin Ketorolac Tromethamine 60 mg 04/04/17 23:28 04/04/17 23:38 Toradol IM 04/04/17 23:29 60 mg ONETIME ONE Administration Orphenadrine Citrate 60 mg 04/04/17 23:30 04/04/17 23:35 Norflex IM 60 mg Q12H SINDHU Administration Departure - Departure Time of Disposition: 23:45 Disposition: Home, Self-Care 01 Condition: Fair Clinical Impression: Lumbosacral radiculopathy Low back pain Qualifiers: Chronicity: unspecified Back pain laterality: unspecified Sciatica presence: unspecified whether sciatica present Qualified Code(s): M54.5 - Low back pain - Discharge Information Instructions: Back Injury Prevention, Qqrg-[id number], Muscle Strain, Yldl-ph-Wpaf , Back Pain, Adult, Klnx-xo-Pmps Forms: ED Department Discharge Additional Instructions: Follow up with your primary care facility if no improvement. Ice and heat to the area as tolerated. Continue taking ibuprofen and tylenol as directed for the pain.
== END 2017-04-04 23:58 | disposition home or self-care (01) ==
LOC: DL.ED 20:12
DX: M54.17 Radiculopathy, lumbosacral region (principal)
CPT/HCPCS: 96372; 99283; J1885; J2360

== ENCOUNTER 2017-04-07 11:44 | Emergency (ER) | payer MEDICAID ==
[2017-04-07] MEDS ORDERED: Acetaminophen/HYDROcodone 325-10 MG Tab PO ONE (11:59)
[2017-04-07] MEDS ORDERED: Ketorolac 30 MG/ML SDV IM ONE (11:59)
--- NOTE | 2017-04-07 12:07 | EDM.PDOC ---
ED HPI GENERAL MEDICAL PROBLEM - General Chief Complaint: Back Pain or Injury Stated Complaint: LOWER BACK Time Seen by Provider: 04/07/17 11:50 Source of Information: Reports: Patient History Limitations: Reports: No Limitations - History of Present Illness INITIAL COMMENTS - FREE TEXT/NARRATIVE: This 41 yo female patient reports to the ED with continued lower back pain with numbness and tingling in her right foot. The patient has a MRI scheduled for Saturday. The patient reports she took her last dose of Diclofenac, Alexander and Norflex last night with little to no symptom relief. The patient reports her primary care facility told her they could not help her until they had the MRI results. The patient also reports she took ibuprofen this morning at about 0400. Onset: Today (numbness and tingling in the right leg), Gradual (lower back pain radiating to her right leg) Duration: Constant, Getting Worse Location: Reports: Back Quality: Reports: Ache, Sharp Severity: Severe Improves with: Reports: None Worsens with: Reports: None Treatments REVIEW APPRAISER: Reports: NSAIDS - Related Data Allergies Allergy/AdvReac Type Severity Reaction Status Date / Time No Known Allergies Allergy Verified 04/07/17 11:55 Home Meds: Home Meds Ibuprofen 400 mg PO Q6H PRN 12/28/14 [History] Linezolid [Zyvox] 600 mg PO BID 04/02/17 [History] Past Medical History - Past Health History Medical/Surgical History: Denies Medical/Surgical History HEENT History: Reports: None Cardiovascular History: Reports: Other (See Below) Other Cardiovascular History: VARICOSE VEINS Respiratory History: Reports: Bronchitis, Recurrent Other Respiratory History: HX OF UPPER RESPIRATORY INFECTION Gastrointestinal History: Reports: None Genitourinary History: Reports: None Other Musculoskeletal History: RIGHT TENNIS ELBOW Neurological History: Reports: None Psychiatric History: Reports: None Endocrine/Metabolic History: Reports: None Hematologic History: Reports: None Immunologic History: Reports: None Oncologic (Cancer) History: Reports: None Dermatologic History: Reports: None - Infectious Disease History Infectious Disease History: Reports: Chicken Pox - Past Surgical History Head Surgeries/Procedures: Reports: None Other Female Surgeries/Procedures: IUD IMPLANT Musculoskeletal Surgical History: Reports: Other (See Below) Other Musculoskeletal Surgeries/Procedures:: right ankle surgery Social & Family History - Family History Family Medical History: Noncontributory - Tobacco Use Smoking Status *Q: Never Smoker Second Hand Smoke Exposure: No - Caffeine Use Caffeine Use: Reports: Soda, Tea - Alcohol Use Days Per Week of Alcohol Use: 0 - Recreational Drug Use Recreational Drug Use: No ED ROS GENERAL - Review of Systems Review Of Systems: ROS reveals no pertinent complaints other than HPI. ED EXAM,LOWER BACK PAIN/INJURY - Physical Exam Exam: See Below Exam Limited By: No Limitations General Appearance: Alert, WD/WN, Moderate Distress, Obese Eye Exam: Bilateral Eye: EOMI, Normal Inspection, PERRL Ears: Normal External Exam, Normal Canal, Hearing Grossly Normal, Normal TMs Nose: Normal Inspection, Normal Mucosa, No Blood Throat/Mouth: Normal Inspection, Normal Lips, Normal Teeth, Normal Gums, Normal Oropharynx, Normal Voice, No Airway Compromise Head: Atraumatic, Normocephalic Neck: Normal Inspection, Supple, Non-Tender, Full Range of Motion Respiratory/Chest: No Respiratory Distress, Lungs Clear, Normal Breath Sounds, No Accessory Muscle Use, Chest Non-Tender Cardiovascular: Normal Peripheral Pulses, Regular Rate, Rhythm, No Edema, No Gallop, No JVD, No Murmur, No Rub GI/Abdominal: Normal Bowel Sounds, Soft, Non-Tender, No Organomegaly, No Distention, No Abnormal Bruit, No Mass (Female) Exam: Deferred Rectal (Female) Exam: Deferred Back Exam: Decreased Range of Motion, Muscle Spasm, Paraspinal Tenderness Extremities: Normal Inspection, Normal Range of Motion, No Pedal Edema, Normal Capillary Refill Neurological: Alert, Normal Mood/Affect, Normal Dorsiflexion, CN II-XII Intact, Normal Plantar Flexion, Oriented x 3, Abnormal Gait (due to lower back pain) Psychiatric: Normal Affect, Normal Mood Skin Exam: Warm, Dry, Intact, Normal Color, No Rash Course - Vital Signs Last Recorded V/S: Last Vital Signs Temp 36.1 C 04/07/17 11:53 Pulse Resp BP Pulse Ox - Orders/Labs/Meds Orders: Active Orders 24 hr Category Date Time Status Acetaminophen/HYDROcodone [Alexander 325-10 MG] Med 04/07/17 11:59 Once 1 tab PO ONETIME ONE Ketorolac [Toradol] Med 04/07/17 11:59 Once 60 mg IM ONETIME ONE Orphenadrine [Norflex] Med 04/07/17 12:00 Ordered 60 mg IM Q12H Departure - Departure Time of Disposition: 12:15 Disposition: Home, Self-Care 01 Condition: Fair Clinical Impression: Lumbosacral radiculopathy Low back pain Qualifiers: Chronicity: unspecified Back pain laterality: unspecified Sciatica presence: unspecified whether sciatica present Qualified Code(s): M54.5 - Low back pain - Discharge Information Instructions: Back Pain, Adult, [id number]-[id number], Muscle Strain, Vbhl-[id number] Care Plan Goals: The patient was advised of the examination results during the visit. The patient was given an injection of Toradol, Norflex and an oral dose of Alexander while in the ED. The patient was discharged with a script for Toradol (10 mg) # 20 to take 1 by mouth every 6 hours and Flexeril (10 mg) #20 to take 1 by mouth at bedtime as needed. If the patient has any additional symptoms or concerns, the patient should follow-up with her primary care facility or return to the emergency department. - My Orders Last 24 Hours: My Active Orders 04/07/17 11:59 Acetaminophen/HYDROcodone [Alexander 325-10 MG] 1 tab PO ONETIME ONE Ketorolac [Toradol] 60 mg IM ONETIME ONE 04/07/17 12:00 Orphenadrine [Norflex] 60 mg IM Q12H - Assessment/Plan Last 24 Hours: My Active Orders 04/07/17 11:59 Acetaminophen/HYDROcodone [Alexander 325-10 MG] 1 tab PO ONETIME ONE Ketorolac [Toradol] 60 mg IM ONETIME ONE 04/07/17 12:00 Orphenadrine [Norflex] 60 mg IM Q12H
== END 2017-04-07 12:35 | disposition home or self-care (01) ==
LOC: DL.ED 11:44
DX: M54.17 Radiculopathy, lumbosacral region (principal)
CPT/HCPCS: 96372; 99283; A9270; J1885; J2360

== ENCOUNTER 2017-09-28 21:25 | Emergency (ER) | payer MEDICAID ==
[2017-09-28] MEDS ORDERED: Acetaminophen/HYDROcodone 325-5 MG Tab PO ONE (22:21)
[2017-09-28] MEDS ORDERED: Cephalexin 500 MG Cap PO ONE (22:21)
--- NOTE | 2017-09-28 22:21 | EDM.PDOC ---
ED HPI GENERAL MEDICAL PROBLEM - General Chief Complaint: Lower Extremity Injury/Pain Stated Complaint: FOOT/LEG PAIN AND SWELLING [id number] Time Seen by Provider: 09/28/17 22:06 Source of Information: Reports: Patient, RN, RN Notes Reviewed History Limitations: Reports: No Limitations - History of Present Illness INITIAL COMMENTS - FREE TEXT/NARRATIVE: Pt to ER with c/o swelling and pain to the right leg. Pt states chronic cellulitis to the right leg, itching to the leg. Rates pain 7/10. Pain with walking at the knee. Pain is no different than usual. She states no new injury. Denies N/V/D, fever, chills. She states she has an appt in a couple of weeks at [facility] for her legs. She states she has been taking ibuprofen for the pain without relief. Onset: Gradual Right Lower Leg Pain Score (Numeric/FACES): 7 - Related Data Allergies Allergy/AdvReac Type Severity Reaction Status Date / Time No Known Allergies Allergy Verified 09/28/17 21:32 Home Meds: Home Meds Ibuprofen 400 mg PO Q6H PRN 12/28/14 [History] Past Medical History - Past Health History Medical/Surgical History: Denies Medical/Surgical History HEENT History: Reports: None Cardiovascular History: Reports: Other (See Below) Other Cardiovascular History: VARICOSE VEINS Respiratory History: Reports: Bronchitis, Recurrent Other Respiratory History: HX OF UPPER RESPIRATORY INFECTION Gastrointestinal History: Reports: None Genitourinary History: Reports: None Other Musculoskeletal History: RIGHT TENNIS ELBOW Neurological History: Reports: None Psychiatric History: Reports: None Endocrine/Metabolic History: Reports: None Hematologic History: Reports: None Immunologic History: Reports: None Oncologic (Cancer) History: Reports: None Dermatologic History: Reports: None - Infectious Disease History Infectious Disease History: Reports: Chicken Pox - Past Surgical History Head Surgeries/Procedures: Reports: None Other Female Surgeries/Procedures: IUD IMPLANT Musculoskeletal Surgical History: Reports: Other (See Below) Other Musculoskeletal Surgeries/Procedures:: right ankle surgery Social & Family History - Family History Family Medical History: Noncontributory - Tobacco Use Smoking Status *Q: Never Smoker Second Hand Smoke Exposure: No - Caffeine Use Caffeine Use: Reports: Soda, Tea - Recreational Drug Use Recreational Drug Use: No Review of Systems - Review of Systems Review Of Systems: ROS reveals no pertinent complaints other than HPI. ED EXAM, GENERAL - Physical Exam Exam: See Below Exam Limited By: No Limitations General Appearance: Alert, WD/WN, No Apparent Distress Eye Exam: Bilateral Eye: EOMI, Normal Inspection Ears: Normal External Exam, Hearing Grossly Normal Nose: Normal Inspection Throat/Mouth: Normal Inspection, Normal Voice, No Airway Compromise Head: Atraumatic, Normocephalic Neck: Normal Inspection, Full Range of Motion Respiratory/Chest: No Respiratory Distress, Lungs Clear, Normal Breath Sounds, No Accessory Muscle Use, Chest Non-Tender Cardiovascular: Normal Peripheral Pulses, Regular Rate, Rhythm, No Gallop, No JVD, No Murmur, No Rub Peripheral Pulses: 1+: Dorsalis Pedis (L), Dorsalis Pedis (R), 2+: Brachial (L) , Brachial (R) GI/Abdominal: Normal Bowel Sounds, Soft, Non-Tender (Female) Exam: Deferred Rectal (Female) Exam: Deferred Back Exam: Normal Inspection, Full Range of Motion Extremities: Pedal Edema (bilateral), Joint Swelling (ankles bilaterally, knees bilaterally), Leg Pain (right leg), Limited Range of Motion (right leg), Increased Warmth (right leg) Neurological: Alert, Oriented, Normal Cognition Psychiatric: Normal Affect, Normal Mood Skin Exam: Erythema, Increased Warmth, Other (right lower leg weeping serous sanguinous fluid, open in several areas from itching. ) Lymphatic: No Adenopathy Course - Vital Signs Last Recorded V/S: Last Vital Signs Temp 97.6 F 09/28/17 22:30 Pulse 76 09/28/17 22:30 Resp 18 09/28/17 22:30 BP 134/84 09/28/17 22:30 Pulse Ox 99 09/28/17 22:30 - Orders/Labs/Meds Orders: Active Orders 24 hr Category Date Time Status CULTURE WOUND [RM] Urgent Lab 09/28/17 22:11 Received Meds: Medications Discontinued Medications Generic Name Dose Route Start Last Admin Trade Name Freq PRN Reason Stop Dose Admin Hydrocodone Bitart/Acetaminophen 1 tab 09/28/17 22:21 09/28/17 22:28 [place] 325-5 Mg PO 09/28/17 22:22 1 tab ONETIME ONE Administration Cephalexin 500 mg 09/28/17 22:21 09/28/17 22:28 Keflex PO 09/28/17 22:22 500 mg ONETIME ONE Administration Departure - Departure Time of Disposition: 22:18 Disposition: Home, Self-Care 01 Condition: Fair Clinical Impression: Cellulitis of right lower extremity Cellulitis Qualifiers: Site of cellulitis: extremity Site of cellulitis of extremity: lower extremity Laterality: right Qualified Code(s): L03.115 - Cellulitis of right lower limb - Discharge Information Instructions: Cellulitis, Adult, [id number], Pain Medicine Instructions, Easy -to-Read Referrals: Kirt Goss [employer] [Primary Care Provider] - Forms: ED Department Discharge Additional Instructions: Call Saturday to see if you can move your appointment to sooner. RX: Keflex, [place] Elevate the leg, may cover with non-adherent dressings and wrap - My Orders Last 24 Hours: My Active Orders 09/28/17 22:11 CULTURE WOUND [RM] Urgent - Assessment/Plan Last 24 Hours: My Active Orders 09/28/17 22:11 CULTURE WOUND [RM] Urgent
[2017-09-28 22:34] VITALS: BP 134/84
== END 2017-09-28 22:31 | disposition home or self-care (01) ==
LOC: DL.ED 21:25
DX: L03.115 Cellulitis of right lower limb (principal)
CPT/HCPCS: 87070; 99283; A9270; 87077; 87186

== ENCOUNTER 2017-10-03 16:53 | Emergency (ER) | payer MEDICAID ==
[2017-10-03 17:39] VITALS: BP 140/86
== END 2017-10-03 20:09 | disposition left against medical advice (07) ==
LOC: DL.ED 16:53
DX: Z53.21 Procedure and treatment not carried out due to patient leaving prior to being seen by health care provider (principal)

== ENCOUNTER 2018-11-15 17:28 | Emergency (ER) | payer MEDICAID ==
[2018-11-15 18:56] VITALS: BP 125/91
[2018-11-15] MEDS ORDERED: Acetaminophen/HYDROcodone 325-10 MG Tab PO ONE (21:48)
--- NOTE | 2018-11-15 21:51 | EDM.PDOC ---
ED HPI GENERAL MEDICAL PROBLEM - General Chief Complaint: Lower Extremity Injury/Pain Stated Complaint: KNEE INJURY Time Seen by Provider: 11/15/18 21:49 Source of Information: Reports: Patient History Limitations: Reports: No Limitations - History of Present Illness INITIAL COMMENTS - FREE TEXT/NARRATIVE: twisted left knee last week, not seen anyone can still work sitting by desk, not getting better. Left Knee Pain Score (Numeric/FACES): 6 - Related Data Allergies Allergy/AdvReac Type Severity Reaction Status Date / Time No Known Allergies Allergy Verified 03/04/18 18:13 Home Meds: Home Meds Ibuprofen 400 mg PO Q6H PRN 12/28/14 [History] Naproxen Sodium [Aleve] 220 mg PO ASDIRECTED 03/04/18 [History] Past Medical History - Past Health History Medical/Surgical History: Denies Medical/Surgical History HEENT History: Reports: None Cardiovascular History: Reports: Other (See Below) Other Cardiovascular History: VARICOSE VEINS Respiratory History: Reports: Bronchitis, Recurrent Other Respiratory History: HX OF UPPER RESPIRATORY INFECTION Gastrointestinal History: Reports: None Genitourinary History: Reports: None Musculoskeletal History: Reports: Back Pain, Chronic Other Musculoskeletal History: RIGHT TENNIS ELBOW Neurological History: Reports: None Psychiatric History: Reports: None Endocrine/Metabolic History: Reports: None Hematologic History: Reports: None Immunologic History: Reports: None Oncologic (Cancer) History: Reports: None Dermatologic History: Reports: None - Infectious Disease History Infectious Disease History: Reports: Chicken Pox - Past Surgical History Head Surgeries/Procedures: Reports: None HEENT Surgical History: Reports: Eye Surgery Other Female Surgeries/Procedures: IUD IMPLANT Musculoskeletal Surgical History: Reports: Other (See Below) Other Musculoskeletal Surgeries/Procedures:: right ankle surgery, back surgery Social & Family History - Family History Family Medical History: Noncontributory - Tobacco Use Smoking Status *Q: Never Smoker - Caffeine Use Caffeine Use: Reports: Soda, Tea - Recreational Drug Use Recreational Drug Use: No - Living Situation & Occupation Living situation: Reports: with Family Review of Systems - Review of Systems Review Of Systems: ROS reveals no pertinent complaints other than HPI. ED EXAM, GENERAL - Physical Exam Exam: See Below Exam Limited By: No Limitations General Appearance: Alert, WD/WN, Mild Distress, Other (tearful) Ears: Hearing Grossly Normal Throat/Mouth: Normal Voice, No Airway Compromise Head: Atraumatic Neck: Non-Tender, Full Range of Motion Respiratory/Chest: No Respiratory Distress Cardiovascular: Regular Rate, Rhythm GI/Abdominal: Soft, Non-Tender Extremities: Other (left knee swollen, tender R/P, NV nwl, gait limited to pain) Neurological: Alert, Oriented, Normal Cognition, No Motor/Sensory Deficits Psychiatric: Tearful Skin Exam: Warm, Dry, Normal Color Lymphatic: No Adenopathy Course - Vital Signs Last Recorded V/S: Last Vital Signs Temp 36.6 C 11/15/18 18:51 Pulse 72 11/15/18 18:51 Resp 16 11/15/18 18:51 BP 125/91 H 11/15/18 18:51 Pulse Ox 100 11/15/18 18:51 - Orders/Labs/Meds Meds: Medications Discontinued Medications Generic Name Dose Route Start Last Admin Trade Name Freq PRN Reason Stop Dose Admin Hydrocodone Bitart/Acetaminophen 1 tab 11/15/18 21:48 11/15/18 21:54 [place] 325-10 Mg PO 11/15/18 21:49 1 tab ONETIME ONE Administration - Re-Assessments/Exams Free Text/Narrative Re-Assessment/Exam: 11/15/18 22:13 results discussed with pt. Departure - Departure Time of Disposition: 22:14 Disposition: Home, Self-Care 01 Condition: Good Clinical Impression: Left knee sprain Qualifiers: Encounter type: initial encounter Involved ligament of knee: unspecified ligament Qualified Code(s): S83.92XA - Sprain of unspecified site of left knee, initial encounter - Discharge Information Instructions: Knee Sprain, Adult, [id number] Forms: ED Department Discharge Additional Instructions: 1) wear knee immobilizer until see clinic 2) see clinic Saturday for possible MRI SCAN for possible internal derangement 3) elevate leg as much as possible 4) take tylenol or motrin for pain 5) see clinic Saturday for other pain meds if above are not working
== END 2018-11-15 22:30 | disposition home or self-care (01) ==
LOC: DL.ED 17:28
DX: S83.92XA Sprain of unspecified site of left knee, initial encounter (principal); X50.9XXA Other and unspecified overexertion or strenuous movements or postures, initial encounter
CPT/HCPCS: 73562; 99283; A9270

== ENCOUNTER 2019-05-07 09:01 | Emergency (ER) | payer MEDICAID ==
--- NOTE | 2019-05-07 11:15 | EDM.PDOC ---
<Chris Mcgovren - Last Filed: 05/07/19 11:10> ED HPI GENERAL MEDICAL PROBLEM - General Chief Complaint: Headache Stated Complaint: DIZZY, HEADACHE Time Seen by Provider: 05/07/19 11:10 Source of Information: Reports: Patient, RN, RN Notes Reviewed History Limitations: Reports: No Limitations - History of Present Illness INITIAL COMMENTS - FREE TEXT/NARRATIVE: Patient was in the shower this morning and began to feel dizzy and had pain in her right arm. She was having palpitations and a headache and thinks she just scared herself. She still has a headache but does not feel dizzy anymore and still feels tingles in her right arm. Onset: Today Duration: Improving Location: Reports: Head, Upper Extremity, Right Quality: Reports: Ache Severity: Mild Improves with: Reports: Medication (tylenol) Worsens with: Reports: None Associated Symptoms: Reports: Headaches. 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 Right Arm Pain Score (Numeric/FACES): 2 - Related Data Allergies Allergy/AdvReac Type Severity Reaction Status Date / Time No Known Allergies Allergy Verified 05/07/19 10:27 Home Meds: Home Meds Ibuprofen 400 mg PO Q6H PRN 12/28/14 [History] Naproxen Sodium [Aleve] 220 mg PO ASDIRECTED 03/04/18 [History] Acetaminophen [Tylenol] 650 mg PO ASDIRECTED PRN 05/07/19 [History] Past Medical History - Past Health History Medical/Surgical History: Denies Medical/Surgical History HEENT History: Reports: None Cardiovascular History: Reports: Other (See Below) Other Cardiovascular History: VARICOSE VEINS Respiratory History: Reports: Bronchitis, Recurrent Other Respiratory History: HX OF UPPER RESPIRATORY INFECTION Gastrointestinal History: Reports: None Genitourinary History: Reports: None Musculoskeletal History: Reports: Back Pain, Chronic Other Musculoskeletal History: RIGHT TENNIS ELBOW Neurological History: Reports: None Psychiatric History: Reports: None Endocrine/Metabolic History: Reports: None Hematologic History: Reports: None Immunologic History: Reports: None Oncologic (Cancer) History: Reports: None Dermatologic History: Reports: None - Infectious Disease History Infectious Disease History: Reports: Chicken Pox - Past Surgical History Head Surgeries/Procedures: Reports: None HEENT Surgical History: Reports: Eye Surgery Other Female Surgeries/Procedures: IUD IMPLANT Musculoskeletal Surgical History: Reports: Other (See Below) Other Musculoskeletal Surgeries/Procedures:: right ankle surgery, back surgery Social & Family History - Family History Family Medical History: Noncontributory - Tobacco Use Smoking Status *Q: Never Smoker Second Hand Smoke Exposure: No - Caffeine Use Caffeine Use: Reports: Soda, Tea - Recreational Drug Use Recreational Drug Use: No - Living Situation & Occupation Living situation: Reports: with Family ED ROS GENERAL - Review of Systems Review Of Systems: See Below Constitutional: Denies: Fever, Chills, Malaise, Weakness HEENT: Reports: No Symptoms Respiratory: Reports: No Symptoms Cardiovascular: Reports: No Symptoms Endocrine: Reports: No Symptoms GI/Abdominal: Reports: No Symptoms : Reports: No Symptoms Musculoskeletal: Reports: Arm Pain (right arm pain and tingles) Skin: Reports: No Symptoms Neurological: Reports: Dizziness, Headache. Denies: Confusion, Numbness, Syncope Psychiatric: Reports: No Symptoms Hematologic/Lymphatic: Reports: No Symptoms Immunologic: Reports: No Symptoms - Physical Exam Exam: See Below Exam Limited By: No Limitations General Appearance: Alert, WD/WN, No Apparent Distress Head Exam: Atraumatic, Normocephalic Respiratory/Chest: No Respiratory Distress, Lungs Clear, Normal Breath Sounds, No Accessory Muscle Use, Chest Non-Tender Cardiovascular: Normal Peripheral Pulses, Regular Rate, Rhythm, No Edema, No Gallop, No JVD, No Murmur, No Rub GI/Abdominal: Normal Bowel Sounds, Soft, Non-Tender, No Organomegaly, No Distention, No Abnormal Bruit, No Mass Neuro Exam (Abbreviated): Alert, Oriented, CN II-XII Intact, Normal Cognition, Normal Gait, Normal Reflexes, No Motor/Sensory Deficits Extremities: Normal Inspection, Normal Range of Motion, Non-Tender, No Pedal Edema, Normal Capillary Refill Psychiatric: Normal Affect, Normal Mood Skin Exam: Warm, Dry, Intact, Normal Color, No Rash Course - Vital Signs Last Recorded V/S: Last Vital Signs Temp 97.5 F 05/07/19 10:23 Pulse 66 05/07/19 10:23 Resp 16 05/07/19 10:23 BP 140/96 H 05/07/19 10:23 Pulse Ox 99 05/07/19 10:23 Departure - Departure Time of Disposition: 11:16 Disposition: Home, Self-Care 01 Condition: Good Clinical Impression: Anxiety - Discharge Information *PRESCRIPTION DRUG MONITORING PROGRAM REVIEWED*: Not Applicable *COPY OF PRESCRIPTION DRUG MONITORING REPORT IN PATIENT KORY: Not Applicable Instructions: Generalized Anxiety Disorder, Adult, Living With Anxiety Referrals: PCP,None [Primary Care Provider] - Forms: ED Department Discharge Additional Instructions: Likely a result of anxiety. Continue to use ibuprofen and tylenol for headaches and arm pain. If feelings of anxiety come on again, try deep breathing exercises to relieve symptoms. Follow-up with primary care provider in clinic for anxiety screening. Sepsis Event Note - Evaluation Sepsis Screening Result: No Definite Risk - Focused Exam Vital Signs: Vital Signs Temp Pulse Resp BP Pulse Ox 05/07/19 10:23 97.5 F 66 16 140/96 H 99 Date Exam was Performed: 05/07/19 Time Exam was Performed: 11:10 <Jennifer Moore - Last Filed: 05/07/19 19:20> Course - Re-Assessments/Exams Free Text/Narrative Re-Assessment/Exam: 05/07/19 19:20 I personally performed or re-performed the physical examination and medical decision making. I have verified all student documentation or findings, including history, physical exam and/or medical decision making. Sepsis Event Note - Focused Exam Date Exam was Performed: 05/07/19 Time Exam was Performed: 19:20
== END 2019-05-07 11:24 | disposition home or self-care (01) ==
LOC: DL.ED 09:01
DX: F41.9 Anxiety disorder, unspecified (principal)
CPT/HCPCS: 99284

== ENCOUNTER 2019-05-19 02:00 | Emergency (ER) | payer MEDICAID ==
[2019-05-19 02:12] VITALS: BP 130/78; PULSE 81
[2019-05-19] MEDS ORDERED: Ketorolac 30 MG/ML SDV IM ONE (02:26)
--- NOTE | 2019-05-19 02:31 | EDM.PDOC ---
ED HPI GENERAL MEDICAL PROBLEM - General Chief Complaint: Back Pain or Injury Stated Complaint: AMBULANCE Time Seen by Provider: 05/19/19 02:20 Source of Information: Reports: Patient, EMS History Limitations: Reports: No Limitations - History of Present Illness INITIAL COMMENTS - FREE TEXT/NARRATIVE: she comes emergency Department today with complaints of lower back pain. Patient has complained of increasing lower back pain past 24-48 hours. She denies any recent falls or trauma. She does complain of tingling to her right toes which is new for her. No change in her bowel or bladder. No hematuria dysuria or urinary frequency. No flank pain. She relates that it feels similar to when she had a herniated disc about 1 year ago that she required surgery on her back for. 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 She is on suboxone for her chronic pain. She also was started on prednisone today for her back pain and only took half of what was prescribed. Back Pain Score (Numeric/FACES): 9 - Related Data Allergies Allergy/AdvReac Type Severity Reaction Status Date / Time No Known Allergies Allergy Verified 05/19/19 02:12 Home Meds: Home Meds Ibuprofen 400 mg PO Q6H PRN 12/28/14 [History] Naproxen Sodium [Aleve] 220 mg PO ASDIRECTED 03/04/18 [History] Acetaminophen [Tylenol] 650 mg PO ASDIRECTED PRN 05/07/19 [History] Buprenorphine HCl/Naloxone HCl [Buprenorphin-Naloxon 8-2 mg Sl] 1 each SL TID [History] predniSONE 40 mg PO DAILY 05/19/19 [History] Past Medical History - Past Health History Medical/Surgical History: Denies Medical/Surgical History HEENT History: Reports: None Cardiovascular History: Reports: Other (See Below) Other Cardiovascular History: VARICOSE VEINS Respiratory History: Reports: Bronchitis, Recurrent Other Respiratory History: HX OF UPPER RESPIRATORY INFECTION Gastrointestinal History: Reports: None Genitourinary History: Reports: None Musculoskeletal History: Reports: Back Pain, Chronic Other Musculoskeletal History: RIGHT TENNIS ELBOW Neurological History: Reports: None Psychiatric History: Reports: None Endocrine/Metabolic History: Reports: None Hematologic History: Reports: None Immunologic History: Reports: None Oncologic (Cancer) History: Reports: None Dermatologic History: Reports: None - Infectious Disease History Infectious Disease History: Reports: Chicken Pox - Past Surgical History Head Surgeries/Procedures: Reports: None HEENT Surgical History: Reports: Eye Surgery Other Female Surgeries/Procedures: IUD IMPLANT Musculoskeletal Surgical History: Reports: Other (See Below) Other Musculoskeletal Surgeries/Procedures:: right ankle surgery, back surgery Social & Family History - Family History Family Medical History: Noncontributory - Tobacco Use Smoking Status *Q: Never Smoker Second Hand Smoke Exposure: No - Caffeine Use Caffeine Use: Reports: Soda, Tea - Recreational Drug Use Recreational Drug Use: No - Living Situation & Occupation Living situation: Reports: with Family ED ROS GENERAL - Review of Systems Review Of Systems: Comprehensive ROS is negative, except as noted in HPI. ED EXAM,LOWER BACK PAIN/INJURY - Physical Exam Exam: See Below General Appearance: Alert, WD/WN, Mild Distress Eye Exam: Bilateral Eye: EOMI, PERRL Ears: Normal External Exam Nose: Normal Inspection, Normal Mucosa Throat/Mouth: Normal Inspection, Normal Lips, Normal Oropharynx Head: Atraumatic, Normocephalic Neck: Normal Inspection, Supple Respiratory/Chest: No Respiratory Distress, Lungs Clear Cardiovascular: Normal Peripheral Pulses, Regular Rate, Rhythm GI/Abdominal: Normal Bowel Sounds, Soft, Non-Tender Back Exam: Paraspinal Tenderness (very low right. ). No: Muscle Spasm, Vertebral Tenderness Extremities: Normal Inspection, Normal Capillary Refill Neurological: Alert, Normal Mood/Affect, Normal Dorsiflexion, Normal Plantar Flexion DTR - Lower Extremities: 2+: Knee (R), Knee (L), Ankle (R), Ankle (L) Psychiatric: Normal Affect, Normal Mood Skin Exam: Warm, Dry, Intact, Normal Color Course - Vital Signs Last Recorded V/S: Last Vital Signs Temp 37.1 C 05/19/19 02:05 Pulse 81 05/19/19 02:05 Resp 18 05/19/19 02:05 BP 130/78 05/19/19 02:05 Pulse Ox 98 05/19/19 02:05 - Orders/Labs/Meds Meds: Medications Discontinued Medications Generic Name Dose Route Start Last Admin Trade Name Freq PRN Reason Stop Dose Admin Ketorolac Tromethamine 60 mg 05/19/19 02:26 05/19/19 02:34 Toradol IM 05/19/19 02:27 60 mg ONETIME ONE Administration Methylprednisolone Sodium Succinate 125 mg 05/19/19 02:54 Solu-Medrol IM 05/19/19 02:55 ONETIME ONE Orphenadrine Citrate 60 mg 05/19/19 02:26 05/19/19 02:36 Norflex IM 05/19/19 02:27 60 mg ONETIME ONE Administration - Re-Assessments/Exams Free Text/Narrative Re-Assessment/Exam: 05/19/19 02:33 Ketorolac 60mg IM Norflex 60mg IM. 05/19/19 02:33 The patient is aware that we are limited on what we can prescribe for her back pain as she is on suboxone. She was also given 125mg of solu-medrol IM 05/19/19 03:10 05/19/19 03:13 The patients pain was much improved after the above therapy. She relates her pain is improved to a 4/10 and feels like she can go home. I talked with her the importance of taking her medication as prescribed. Consider physical therapy and talk with her PCP in the next few days if she is not improving. She is comfortable with this plan. With her extensive history of controlled substances when I review her PDMP and also her usage of suboxone currently I do not feel comfortable sending her home with any controlled substances or even flexeril. She is understanding of this and her questions answered. Departure - Departure Time of Disposition: 03:15 Disposition: Home, Self-Care 01 Clinical Impression: Lumbosacral radiculopathy - Discharge Information Instructions: Chronic Back Pain, [id number], Pain Medicine Instructions, Easy -to-Read, Lumbosacral Radiculopathy Forms: ED Department Discharge Additional Instructions: Continue your medication as previous although take them as directed and prescribed. Consider physical therapy. Use regular dosing of Tylenol and or Naproxen as needed for pain. Heat or ice to the area which ever is best for you. Return to the ED if new or worsening symptoms. Recheck with PCP in the next 2-4 days if not improving sooner if worse. Sepsis Event Note - Evaluation Sepsis Screening Result: No Definite Risk - Focused Exam Vital Signs: Vital Signs Temp Pulse Resp BP Pulse Ox 05/19/19 02:05 37.1 C 81 18 130/78 98 Date Exam was Performed: 05/19/19 Time Exam was Performed: 03:10 - Assessment/Plan Assessment:: Lumbosacral radiculopathy. Acute on chronic. Plan: Continue your medication as previous although take them as directed and prescribed. Consider physical therapy. Use regular dosing of Tylenol and or Naproxen as needed for pain. Heat or ice to the area which ever is best for you. Return to the ED if new or worsening symptoms. Recheck with PCP in the next 2-4 days if not improving sooner if worse.
[2019-05-19] MEDS ORDERED: methylPREDNISolone Sodium Succinate 125 MG/2 ML SDV IM ONE (02:54)
== END 2019-05-19 03:27 | disposition home or self-care (01) ==
LOC: DL.ED 02:00
DX: M54.16 Radiculopathy, lumbar region (principal)
CPT/HCPCS: 96372; 99284; J1885; J2360; J2930

== ENCOUNTER 2019-05-23 14:35 | Emergency (ER) | payer MEDICAID ==
--- NOTE | 2019-05-23 15:26 | EDM.PDOC ---
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 Feels same as previous herniated disc. Appointment scheduled with neurosurgeon on Saturday. Has been trying icy hot. Advil last night. No weakness. Pain greater with movment. Some tingling on right outer leg to calf, same as previous. Lower Back Pain Score (Numeric/FACES): 9 - Related Data Allergies Allergy/AdvReac Type Severity Reaction Status Date / Time No Known Allergies Allergy Verified 05/23/19 14:44 Home Meds: Home Meds Ibuprofen 400 mg PO Q6H PRN 12/28/14 [History] Naproxen Sodium [Aleve] 220 mg PO ASDIRECTED 03/04/18 [History] Acetaminophen [Tylenol] 650 mg PO ASDIRECTED PRN 05/07/19 [History] Buprenorphine HCl/Naloxone HCl [Buprenorphin-Naloxon 8-2 mg Sl] 1 each SL TID [History] predniSONE 40 mg PO DAILY 05/19/19 [History] Past Medical History - Past Health History Medical/Surgical History: Denies Medical/Surgical History HEENT History: Reports: None Cardiovascular History: Reports: Other (See Below) Other Cardiovascular History: VARICOSE VEINS Respiratory History: Reports: Bronchitis, Recurrent Other Respiratory History: HX OF UPPER RESPIRATORY INFECTION Gastrointestinal History: Reports: None Genitourinary History: Reports: None 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: Musculoskeletal History: Reports: Back Pain, Chronic Other Musculoskeletal History: RIGHT TENNIS ELBOW Neurological History: Reports: None Psychiatric History: Reports: Addiction Endocrine/Metabolic History: Reports: None Hematologic History: Reports: None Immunologic History: Reports: None Oncologic (Cancer) History: Reports: None Dermatologic History: Reports: None - Infectious Disease History Infectious Disease History: Reports: Chicken Pox - Past Surgical History Head Surgeries/Procedures: Reports: None HEENT Surgical History: Reports: Eye Surgery Other Female Surgeries/Procedures: IUD IMPLANT Musculoskeletal Surgical History: Reports: Other (See Below) Other Musculoskeletal Surgeries/Procedures:: right ankle surgery, back surgery Social & Family History - Family History Family Medical History: Noncontributory - Tobacco Use Smoking Status *Q: Never Smoker Second Hand Smoke Exposure: No - Caffeine Use Caffeine Use: Reports: None - Recreational Drug Use Recreational Drug Use: Yes Drug Use in Last 12 Months: Yes Recreational Drug Type: Reports: Other (see below) Other Recreational Drug Type: tramadol addiction Recreational Drug Use Frequency: Not Used In Over 6 Months - Living Situation & Occupation Living situation: Reports: with Family ED ROS GENERAL - Review of Systems Review Of Systems: Comprehensive ROS is negative, except as noted in HPI. ED EXAM,LOWER BACK PAIN/INJURY - Physical Exam Exam: See Below Exam Limited By: No Limitations General Appearance: Alert, Moderate Distress, Obese Eye Exam: Bilateral Eye: EOMI Ears: Normal External Exam Nose: Normal Inspection Throat/Mouth: Normal Inspection Head: Atraumatic, Normocephalic Neck: Normal Inspection, Full Range of Motion Respiratory/Chest: No Respiratory Distress, Lungs Clear, Normal Breath Sounds Cardiovascular: Normal Peripheral Pulses, Regular Rate, Rhythm, No Edema GI/Abdominal: Normal Bowel Sounds Extremities: Normal Range of Motion. No: Pedal Edema, Limited Range of Motion Neurological: Alert, Normal Mood/Affect, Normal Plantar Flexion, Normal Gait, No Motor/Sensory Deficits, Oriented x 3, Straight Leg Raise (R). No: Abnormal Sensation, Tremor, Difficulty Walking Psychiatric: Tearful Skin Exam: Warm, Dry, Intact, Normal Color Course - Vital Signs Last Recorded V/S: Last Vital Signs Temp 97.3 F 05/23/19 14:46 Pulse 84 05/23/19 14:46 Resp 18 05/23/19 14:46 BP 142/91 H 05/23/19 14:46 Pulse Ox 99 05/23/19 14:46 Departure - Departure Time of Disposition: 15:24 Disposition: Home, Self-Care 01 Condition: Good Clinical Impression: Back pain Qualifiers: Back pain location: low back pain Chronicity: acute Back pain laterality: right Sciatica presence: with sciatica Sciatica laterality: sciatica of right side Qualified Code(s): M54.41 - Lumbago with sciatica, right side - Discharge Information *PRESCRIPTION DRUG MONITORING PROGRAM REVIEWED*: Not Applicable *COPY OF PRESCRIPTION DRUG MONITORING REPORT IN PATIENT KORY: Not Applicable Instructions: Acute Back Pain, Adult Referrals: Beverly Orellana MD [Primary Care Provider] - Forms: ED Department Discharge Additional Instructions: Follow with Dr Joseph as scheduled light activity Ibuprofen 600mg one every 6 hours as needed with food ice to low back flexeril 10mg one every 8 hours as needed #10 Sepsis Event Note - Evaluation Sepsis Screening Result: No Definite Risk - Focused Exam Date Exam was Performed: 05/24/19 Time Exam was Performed: 15:21
== END 2019-05-23 15:32 | disposition home or self-care (01) ==
LOC: DL.ED 14:35
CPT/HCPCS: 99283

== ENCOUNTER 2019-05-29 21:45 | Emergency (ER) | payer MEDICAID ==
[2019-05-29 21:52] VITALS: BP 141/87; PULSE 97
--- NOTE | 2019-05-29 22:16 | EDM.PDOC ---
ED HPI GENERAL MEDICAL PROBLEM - General Chief Complaint: Back Pain or Injury Stated Complaint: LOWER BACK, BACK OF LEFT LEG ALSO PER PT Time Seen by Provider: 05/29/19 22:15 Source of Information: Reports: Patient, RN, RN Notes Reviewed History Limitations: Reports: No Limitations - History of Present Illness INITIAL COMMENTS - FREE TEXT/NARRATIVE: patient presents to ER with complaint of left lower back pain, sciatica pain, sharp shooting pain down the left leg, numbness and tingling to the left leg. Patient denies any saddle anesthesia, incontinence of bowel or bladder. Patient states she has chronic pain in her back and was seen on Saturday in the clinic by her primary. Patient states she is to follow-up in [place], but needs to have an MRI done first. Onset: Gradual Duration: Chronic Location: Reports: Lower Extremity, Left Quality: Reports: Same as Previous Episode, Sharp, Stabbing Severity: Moderate Improves with: Reports: None Worsens with: Reports: None Associated Symptoms: Reports: No Other Symptoms Lower Back Pain Score (Numeric/FACES): 96 - Related Data Allergies Allergy/AdvReac Type Severity Reaction Status Date / Time No Known Allergies Allergy Verified 05/23/19 14:44 Home Meds: Home Meds Ibuprofen 400 mg PO Q6H PRN 12/28/14 [History] Naproxen Sodium [Aleve] 220 mg PO ASDIRECTED 03/04/18 [History] Acetaminophen [Tylenol] 650 mg PO ASDIRECTED PRN 05/07/19 [History] Buprenorphine HCl/Naloxone HCl [Buprenorphin-Naloxon 8-2 mg Sl] 1 each SL TID [History] predniSONE 40 mg PO DAILY 05/19/19 [History] oxyCODONE 5 mg PO Q6HR PRN 05/29/19 [History] Past Medical History - Past Health History Medical/Surgical History: Denies Medical/Surgical History HEENT History: Reports: None Cardiovascular History: Reports: Other (See Below) Other Cardiovascular History: VARICOSE VEINS Respiratory History: Reports: Bronchitis, Recurrent Other Respiratory History: HX OF UPPER RESPIRATORY INFECTION Gastrointestinal History: Reports: None Genitourinary History: Reports: None 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: Musculoskeletal History: Reports: Back Pain, Chronic Other Musculoskeletal History: RIGHT TENNIS ELBOW Neurological History: Reports: None Psychiatric History: Reports: Addiction Endocrine/Metabolic History: Reports: None Hematologic History: Reports: None Immunologic History: Reports: None Oncologic (Cancer) History: Reports: None Dermatologic History: Reports: None - Infectious Disease History Infectious Disease History: Reports: Chicken Pox - Past Surgical History Head Surgeries/Procedures: Reports: None HEENT Surgical History: Reports: Eye Surgery Other Female Surgeries/Procedures: IUD IMPLANT Musculoskeletal Surgical History: Reports: Other (See Below) Other Musculoskeletal Surgeries/Procedures:: right ankle surgery, back surgery Social & Family History - Family History Family Medical History: Noncontributory - Tobacco Use Smoking Status *Q: Never Smoker Second Hand Smoke Exposure: No - Caffeine Use Caffeine Use: Reports: Tea - Recreational Drug Use Recreational Drug Use: No - Living Situation & Occupation Living situation: Reports: with Family ED ROS GENERAL - Review of Systems Review Of Systems: Comprehensive ROS is negative, except as noted in HPI. ED EXAM,LOWER BACK PAIN/INJURY - Physical Exam Exam: See Below Exam Limited By: No Limitations General Appearance: Alert, WD/WN, Moderate Distress Eye Exam: Bilateral Eye: EOMI, Normal Inspection Ears: Normal External Exam, Hearing Grossly Normal Nose: Normal Inspection Throat/Mouth: Normal Inspection, Normal Voice, No Airway Compromise Head: Atraumatic, Normocephalic Neck: Normal Inspection, Supple, Non-Tender, Full Range of Motion Respiratory/Chest: No Respiratory Distress, Lungs Clear, Normal Breath Sounds, No Accessory Muscle Use, Chest Non-Tender Cardiovascular: Normal Peripheral Pulses, Regular Rate, Rhythm, No Edema, No Gallop, No JVD, No Murmur, No Rub GI/Abdominal: Normal Bowel Sounds, Soft, Non-Tender, No Organomegaly, No Distention, No Abnormal Bruit, No Mass (Female) Exam: Deferred Rectal (Female) Exam: Deferred Back Exam: Normal Inspection, Decreased Range of Motion (left leg), Muscle Spasm (left lower back, left leg), Paraspinal Tenderness, Vertebral Tenderness Extremities: No Pedal Edema, Normal Capillary Refill, Leg Pain (left), Limited Range of Motion (left leg) Neurological: Alert, Normal Mood/Affect, Oriented x 3, Abnormal Gait Psychiatric: Normal Affect, Normal Mood Skin Exam: Warm, Dry, Intact, Normal Color, No Rash Lymphatic: No Adenopathy Course - Vital Signs Last Recorded V/S: Last Vital Signs Temp 97.8 F 05/29/19 21:48 Pulse 97 05/29/19 21:48 Resp 18 05/29/19 21:48 BP 141/87 H 05/29/19 21:48 Pulse Ox 98 05/29/19 21:48 - Orders/Labs/Meds Meds: Medications Discontinued Medications Generic Name Dose Route Start Last Admin Trade Name Rubens PRN Reason Stop Dose Admin Dexamethasone 12 mg 05/29/19 22:20 Dexamethasone IM 05/29/19 22:21 ONETIME ONE Ketorolac Tromethamine 30 mg 05/29/19 22:19 Toradol IM 05/29/19 22:20 ONETIME ONE Orphenadrine Citrate 60 mg 05/29/19 22:19 Norflex IM 05/29/19 22:20 ONETIME ONE Departure - Departure Time of Disposition: 22:32 Disposition: Home, Self-Care 01 Condition: Fair Clinical Impression: Lumbosacral radiculopathy Sciatica Qualifiers: Laterality: left Qualified Code(s): M54.32 - Sciatica, left side Low back pain Qualifiers: Chronicity: unspecified Back pain laterality: unspecified Sciatica presence: unspecified whether sciatica present Qualified Code(s): M54.5 - Low back pain - Discharge Information *PRESCRIPTION DRUG MONITORING PROGRAM REVIEWED*: No *COPY OF PRESCRIPTION DRUG MONITORING REPORT IN PATIENT KORY: No Instructions: Muscle Strain, [id number], Back Injury Prevention, [id number] , Back Exercises, [id number], Sciatica, [id number], Chronic Back Pain, Easy- to-Read, Heat Therapy, [id number] Forms: ED Department Discharge Additional Instructions: Rx: Dexamethasone, cyclobenzaprine Use heat to the back as tolerated Follow-up with your primary care provider for MRI Sepsis Event Note - Evaluation Sepsis Screening Result: No Definite Risk - Focused Exam Vital Signs: Vital Signs Temp Pulse Resp BP Pulse Ox 05/29/19 21:48 97.8 F 97 18 141/87 H 98 Date Exam was Performed: 05/29/19 Time Exam was Performed: 22:28
[2019-05-29] MEDS ORDERED: Ketorolac 30 MG/ML SDV IM ONE (22:19)
[2019-05-29] MEDS ORDERED: Dexamethasone 4 MG/ML SDV IM ONE (22:20)
== END 2019-05-29 22:51 | disposition home or self-care (01) ==
LOC: DL.ED 21:45
DX: M54.42 Lumbago with sciatica, left side (principal); M54.17 Radiculopathy, lumbosacral region; Z79.899 Other long term (current) drug therapy
CPT/HCPCS: 96372; 99283; J1100; J1885; J2360

== ENCOUNTER 2019-05-30 23:03 | Observation (INO) | payer MEDICAID ==
[2019-05-30] MEDS: Sodium Chloride 0.9% 10 ML Syringe FLUSH PRN (23:30)
--- NOTE | 2019-05-30 23:50 | EDM.PDOC ---
ED HPI GENERAL MEDICAL PROBLEM - General Chief Complaint: Back Pain or Injury Stated Complaint: AMBULANCE Time Seen by Provider: 05/30/19 23:10 Source of Information: Reports: Patient, EMS, EMS Notes Reviewed, RN, RN Notes Reviewed History Limitations: Reports: No Limitations - History of Present Illness INITIAL COMMENTS - FREE TEXT/NARRATIVE: patient presents to ER with left lower back pain, sciatica pain, numbness and tingling to the toes and the left leg. Patient also complains of sharp shooting pains down the left leg. Patient denies any saddle anesthesia, incontinence of bowel or bladder. Patient was seen in the ER last evening, was giving IM dexamethasone, Norflex, ketorolac, with scripts to go home for dexamethasone and cyclobenzaprine. Patient states she did fill the scripts and has been using them today. Onset: Gradual Bilateral Lower Back Pain Score (Numeric/FACES): 10 - Related Data Allergies Allergy/AdvReac Type Severity Reaction Status Date / Time No Known Allergies Allergy Verified 05/30/19 23:09 Home Meds: Home Meds Ibuprofen 400 mg PO Q6H PRN 12/28/14 [History] Naproxen Sodium [Aleve] 220 mg PO ASDIRECTED 03/04/18 [History] Acetaminophen [Tylenol] 650 mg PO ASDIRECTED PRN 05/07/19 [History] Buprenorphine HCl/Naloxone HCl [Buprenorphin-Naloxon 8-2 mg Sl] 1 each SL TID [History] predniSONE 40 mg PO DAILY 05/19/19 [History] oxyCODONE 5 mg PO Q6HR PRN 05/29/19 [History] Past Medical History - Past Health History Medical/Surgical History: Denies Medical/Surgical History HEENT History: Reports: None Cardiovascular History: Reports: Other (See Below) Other Cardiovascular History: VARICOSE VEINS Respiratory History: Reports: Bronchitis, Recurrent Other Respiratory History: HX OF UPPER RESPIRATORY INFECTION Gastrointestinal History: Reports: None Genitourinary History: Reports: 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: Musculoskeletal History: Reports: Back Pain, Chronic Other Musculoskeletal History: RIGHT TENNIS ELBOW Neurological History: Reports: None Psychiatric History: Reports: Addiction Endocrine/Metabolic History: Reports: None Hematologic History: Reports: None Immunologic History: Reports: None Oncologic (Cancer) History: Reports: None Dermatologic History: Reports: None - Infectious Disease History Infectious Disease History: Reports: Chicken Pox - Past Surgical History Head Surgeries/Procedures: Reports: None HEENT Surgical History: Reports: Eye Surgery Other Female Surgeries/Procedures: IUD IMPLANT Musculoskeletal Surgical History: Reports: Other (See Below) Other Musculoskeletal Surgeries/Procedures:: right ankle surgery, back surgery Social & Family History - Family History Family Medical History: Noncontributory - Tobacco Use Smoking Status *Q: Never Smoker Second Hand Smoke Exposure: No - Caffeine Use Caffeine Use: Reports: None - Recreational Drug Use Recreational Drug Use: No - Living Situation & Occupation Living situation: Reports: with Family ED ROS GENERAL - Review of Systems Review Of Systems: Comprehensive ROS is negative, except as noted in HPI. ED EXAM,LOWER BACK PAIN/INJURY - Physical Exam Exam: See Below Exam Limited By: Physical Impairment General Appearance: Alert, WD/WN, Anxious, Moderate Distress Eye Exam: Bilateral Eye: EOMI, Normal Inspection Ears: Normal External Exam, Hearing Grossly Normal Nose: Normal Inspection Throat/Mouth: Normal Inspection, Normal Voice, No Airway Compromise Head: Atraumatic, Normocephalic Neck: Normal Inspection, Supple, Non-Tender, Full Range of Motion Respiratory/Chest: No Respiratory Distress, Lungs Clear, Normal Breath Sounds, No Accessory Muscle Use, Chest Non-Tender Cardiovascular: Normal Peripheral Pulses, Regular Rate, Rhythm, No Edema, No Gallop, No JVD, No Murmur, No Rub GI/Abdominal: Normal Bowel Sounds, Soft, Non-Tender (Female) Exam: Deferred Rectal (Female) Exam: Deferred Back Exam: Normal Inspection, Decreased Range of Motion, Muscle Spasm, Paraspinal Tenderness, Vertebral Tenderness Extremities: Leg Pain (left), Limited Range of Motion (left leg) Neurological: Alert, Oriented x 3, Difficulty Walking, Other (numbness and tingling to the left leg). No: Normal Gait, Saddle Anesthesia Psychiatric: Anxious, Tearful Skin Exam: Warm, Dry, Intact, Normal Color, No Rash Lymphatic: No Adenopathy Course - Vital Signs Last Recorded V/S: Last Vital Signs Temp 98.5 F 05/30/19 23:03 Pulse 97 05/30/19 23:03 Resp 20 05/30/19 23:03 BP 135/85 05/30/19 23:03 Pulse Ox 100 05/30/19 23:03 - Orders/Labs/Meds Orders: Active Orders 24 hr Category Date Time Status Admission Diagnosis [ADT] Stat ADT 05/31/19 00:34 Ordered Patient Status [ADT] Routine ADT 05/31/19 00:34 Ordered Peripheral IV Care [RC] . DIRECTED Care 05/30/19 23:22 Active CULTURE BLOOD [BC] Stat Lab 05/30/19 23:50 Received CULTURE BLOOD [BC] Stat Lab 05/30/19 23:55 Received Sodium Chloride 0.9% [Saline Flush] Med 05/30/19 23:22 Active 10 ml FLUSH ASDIRECTED PRN Blood Culture x2 Reflex Set [OM.PC] Stat Oth 05/30/19 23:43 Ordered Peripheral IV Insertion Adult [OM.PC] Stat Oth 05/30/19 23:22 Ordered Medication Orders Sodium Chloride (Saline Flush) 10 ml FLUSH ASDIRECTED PRN PRN Reason: Keep Vein Open Last Admin: 05/31/19 00:22 Dose: 10 ml Admin: 05/30/19 23:30 Dose: 10 ml Labs: Laboratory Tests 05/30/19 05/30/19 05/30/19 Range/Units 23:25 23:25 23:25 WBC 16.5 H (5.0-10.0) 10^3/uL RBC 4.90 (4.2-5.4) 10^6/uL Hgb 12.9 (12.0-16.0) g/dL Hct 38.9 (37.0-47.0) % MCV 79.4 L (80-100) fL MCH 26.3 L (27.0-34.0) pg MCHC 33.2 (33.0-35.0) g/dL Plt Count 317 (150-450) 10^3/uL Neut % (Auto) 80.8 H (42.2-75.2) % Lymph % (Auto) 12.8 L (20.5-50.1) % [place] % (Auto) 6.1 (2-8) % Eos % (Auto) 0.1 L (1.0-3.0) % Baso % (Auto) 0.2 (0.0-1.0) % Sodium 135 (135-145) mmol/L Potassium 3.6 (3.6-5.0) mmol/L Chloride 104 (101-111) mmol/L Carbon Dioxide 23.0 (21.0-31.0) mmol/L Anion Gap 11.6 BUN 18 (7-18) mg/dL Creatinine 0.6 (0.6-1.3) mg/dL Est Cr Clr Drug Dosing 121.00 mL/min Estimated GFR (MDRD) > 60 BUN/Creatinine Ratio 30.00 Glucose 143 H (74-105) mg/dL Lactic Acid 1.5 (0.5-2.0) mmol/L Calcium 9.2 (8.4-10.2) mg/dl Total Bilirubin 0.5 (0.2-1.0) mg/dL AST 18 (10-42) IU/L ALT 17 (10-60) IU/L Alkaline Phosphatase 99 (42-121) IU/L Total Protein 7.3 (6.7-8.2) g/dl Albumin 3.7 (3.2-5.5) g/dl Globulin 3.6 Albumin/Globulin Ratio 1.03 Meds: Medications Generic Name Dose Route Start Last Admin Trade Name Freq PRN Reason Stop Dose Admin Sodium Chloride 10 ml 05/30/19 23:22 05/31/19 00:22 Saline Flush FLUSH 10 ml ASDIRECTED PRN Administration Keep Vein Open Discontinued Medications Generic Name Dose Route Start Last Admin Trade Name Freq PRN Reason Stop Dose Admin Dexamethasone 8 mg 05/31/19 00:28 Dexamethasone IVPUSH 05/31/19 00:29 ONETIME ONE Diazepam 5 mg 05/30/19 23:20 05/30/19 23:29 Valium IVPUSH 05/30/19 23:21 5 mg ONETIME ONE Administration Diazepam 5 mg 05/31/19 00:17 05/31/19 00:22 Valium IVPUSH 05/31/19 00:18 5 mg ONETIME ONE Administration - Re-Assessments/Exams Free Text/Narrative Re-Assessment/Exam: 05/31/19 00:40 Discussed patient case with Dr. Christiansen who agreed to accept the patient for observation admission Departure - Departure Time of Disposition: 00:41 Disposition: Refer to Observation Condition: Fair Clinical Impression: Lumbosacral radiculopathy - Discharge Information *PRESCRIPTION DRUG MONITORING PROGRAM REVIEWED*: No *COPY OF PRESCRIPTION DRUG MONITORING REPORT IN PATIENT KORY: No Forms: ED Department Discharge Sepsis Event Note - Evaluation Sepsis Screening Result: No Definite Risk - Focused Exam Vital Signs: Vital Signs Temp Pulse Resp BP Pulse Ox 05/30/19 23:03 98.5 F 97 20 135/85 100 Date Exam was Performed: 05/31/19 Time Exam was Performed: 00:40 - My Orders Last 24 Hours: My Active Orders 05/30/19 23:22 Peripheral IV Care [RC] . DIRECTED Sodium Chloride 0.9% [Saline Flush] 10 ml FLUSH ASDIRECTED PRN Peripheral IV Insertion Adult [OM.PC] Stat 05/30/19 23:43 Blood Culture x2 Reflex Set [OM.PC] Stat 05/30/19 23:50 CULTURE BLOOD [BC] Stat 05/30/19 23:55 CULTURE BLOOD [BC] Stat 05/31/19 00:34 Admission Diagnosis [ADT] Stat Patient Status [ADT] Routine - Assessment/Plan Last 24 Hours: My Active Orders 05/30/19 23:22 Peripheral IV Care [RC] . DIRECTED Sodium Chloride 0.9% [Saline Flush] 10 ml FLUSH ASDIRECTED PRN Peripheral IV Insertion Adult [OM.PC] Stat 05/30/19 23:43 Blood Culture x2 Reflex Set [OM.PC] Stat 05/30/19 23:50 CULTURE BLOOD [BC] Stat 05/30/19 23:55 CULTURE BLOOD [BC] Stat 05/31/19 00:34 Admission Diagnosis [ADT] Stat Patient Status [ADT] Routine
[2019-05-30 23:51] LABS: ANION GAP 11.6; CHLORIDE,CL 104 mmol/L (101-111); SODIUM,NA 135 mmol/L (135-145)
[2019-05-31] MEDS: Sodium Chloride 0.9% 10 ML Syringe FLUSH PRN ×7 (00:22→18:27)
[2019-05-31] MEDS ORDERED: Dexamethasone 4 MG/ML SDV IVPUSH ONE (00:28)
[2019-05-31] MEDS ORDERED: Sodium Chloride 0.9% 10 ML Syringe FLUSH PRN (01:32)
[2019-05-31] MEDS ORDERED: Ondansetron 4 MG/2 ML SDV IV PRN (01:32)
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
[2019-05-31] MEDS: fentaNYL 100 MCG/2 ML SDV IVPUSH PRN ×4 (01:54→12:40)
[2019-05-31] MEDS: oxyCODONE 5 MG Tab PO PRN ×5 (01:55→23:01)
[2019-05-31] MEDS: Acetaminophen 325 MG Tab PO PRN ×4 (07:49→23:00)
[2019-05-31] MEDS: Enoxaparin 40 MG/0.4 ML Syringe SUBCUT SCH (10:07)
[2019-05-31] MEDS: Baclofen 10 MG Tab PO PRN ×2 (11:02→17:19)
[2019-05-31] MEDS: Lidocaine 5% 700 MG Patch TOP SCH (12:40)
[2019-05-31] MEDS: Morphine 2 MG/ML SYRINGE IVPUSH PRN ×4 (13:52→22:55)
[2019-05-31] MEDS ORDERED: Lactulose Soln 10 GM/15 ML 30 ML UD Cup PO ONE (21:46)
[2019-05-31] MEDS: Polyethylene Glycol 3350 Powder 17 GM Packet PO SCH (23:00)
[2019-06-01] MEDS: Morphine 2 MG/ML SYRINGE IVPUSH PRN ×4 (02:57→11:10)
[2019-06-01] MEDS: Acetaminophen 325 MG Tab PO PRN ×2 (03:03→09:14)
[2019-06-01] MEDS: oxyCODONE 5 MG Tab PO PRN ×2 (03:05→09:15)
[2019-06-01] MEDS: Sodium Chloride 0.9% 10 ML Syringe FLUSH PRN (08:03)
[2019-06-01] MEDS: Baclofen 10 MG Tab PO PRN (09:14)
[2019-06-01] MEDS: Enoxaparin 40 MG/0.4 ML Syringe SUBCUT SCH (09:17)
--- NOTE | 2019-06-01 10:22 | PCM.DCSUM1 ---
Discharge Summary - Hospital Course Free Text/Narrative:: 43 yo F with PMH of morbid obesity, chronic back pain, herniated nucleus pulposus s/p discectomy in Mar 2018 who presents with low back pain. The patient has had intermittent low back pain for more than a month and has had several ED visits for this. She was in the process of getting MRI of the back and a neurosurgery consult. Recurrence of the back pain occurred again. 10/10 pain, worse with movement, no relieving factors. She has pain radiating down the left leg. In addition, pain is associated with weakness of the left lower extremity and intermittent paraesthesias/numbness. Was unable to bear weight on the left lower limb and this prompted her to return to the ED. She does not have any saddle anesthesia, urine incontinence or fecal incontinence. Pain was controlled with pain meds. Had MRI done the next day which showed significant foraminal narrowing at L4/5 Discussed with Neurosurgery team at [facility] and they recommended a transfer. Discussed with Dr. Mercado who accepted the patient at [facility] Diagnosis: Stroke: No - Discharge Data Discharge Date: 06/01/19 Discharge Disposition: DC/Tfer to Acute Hospital 02 Condition: Undetermined - Referral to Home Health Primary Care Physician: Beverly Orellana MD - Patient Summary/Data Consults: Consultations 05/31/19 01:33 OT Evaluation and Treatment [CONS] Routine PT Evaluation and Treatment [CONS] Routine - Discharge Plan *PRESCRIPTION DRUG MONITORING PROGRAM REVIEWED*: No *COPY OF PRESCRIPTION DRUG MONITORING REPORT IN PATIENT KORY: No Home Medications: Home Meds Ibuprofen 400 mg PO Q6H PRN 12/28/14 [History] Acetaminophen [Tylenol] 650 mg PO ASDIRECTED PRN 05/07/19 [History] Multivitamin [Multi-Day Vitamins] 1 cap PO DAILY 05/31/19 [History] oxyCODONE 5 mg PO TID PRN 05/31/19 [History] Forms: ED Department Discharge Referrals: Beverly Orellana MD [Primary Care Provider] - - Discharge Summary/Plan Comment DC Time >30 min.: Yes - General Info Date of Service: 06/01/19 Admission Dx/Problem (Free Text: Admission Diagnosis/Problem Admission Diagnosis/Problem Lumbar radiculopathy Subjective Update: Still has 7/10 low back pain, worse with movement. She does not have any saddle anesthesia, urine incontinence or fecal incontinence. Neurochecks have been the same since admission - Review of Systems General: Reports: No Symptoms HEENT: Reports: No Symptoms Pulmonary: Reports: No Symptoms Cardiovascular: Reports: No Symptoms Gastrointestinal: Reports: No Symptoms Genitourinary: Reports: No Symptoms Musculoskeletal: Reports: Back Pain Skin: Reports: No Symptoms Neurological: Reports: Paresthesia, Tingling Psychiatric: Reports: No Symptoms - Patient Data Vitals - Most Recent: Last Vital Signs Temp 35.8 C L 06/01/19 07:00 Pulse 61 06/01/19 07:00 Resp 18 06/01/19 07:00 BP 122/81 06/01/19 07:00 Pulse Ox 99 06/01/19 07:00 Weight - Most Recent: 123.434 kg I&O - Last 24 hours: Intake & Output 05/31/19 06/01/19 06/01/19 22:59 06:59 14:59 Intake Total 500 150 360 Output Total 500 250 Balance 0 -100 360 CARMELINA Results - Last 24 hrs: Microbiology 05/30/19 23:55 Aerobic Blood Culture - Preliminary Blood - Venous - Lab Draw NO GROWTH AFTER 1 DAY Anaerobic Blood Culture - Preliminary NO GROWTH AFTER 1 DAY 05/30/19 23:50 Aerobic Blood Culture - Preliminary Blood - Venous NO GROWTH AFTER 1 DAY Anaerobic Blood Culture - Preliminary NO GROWTH AFTER 1 DAY Med Orders - Current: Current Medications Acetaminophen (Tylenol) 650 mg PO Q4H PRN PRN Reason: Pain (mild 1-3) Last Admin: 06/01/19 09:14 Dose: 650 mg Baclofen (Lioresal) 10 mg PO TID PRN PRN Reason: Spasms Last Admin: 06/01/19 09:14 Dose: 10 mg Enoxaparin Sodium (Lovenox) 40 mg SUBCUT DAILY [facility] Last Admin: 06/01/19 09:17 Dose: 40 mg Lidocaine (Lidoderm 5%) 700 mg TOP DAILY [facility] Last Admin: 05/31/19 12:40 Dose: 700 mg Miscellaneous Information (Remove Patch) 1 ea TRDERM BEDTIME [facility] Last Admin: 05/31/19 20:39 Dose: Not Given Miscellaneous Information (Check Patch) 1 ea TRDERM BEDTIME [facility] Morphine Sulfate (Morphine) 2 mg IVPUSH Q2H PRN PRN Reason: Pain (severe 7-10) Last Admin: 06/01/19 08:01 Dose: 2 mg Ondansetron HCl (Zofran) 4 mg IV Q4H PRN PRN Reason: Nausea/Vomiting Oxycodone HCl (Oxycodone) 5 mg PO Q4H PRN PRN Reason: Pain (moderate 4-6) Last Admin: 06/01/19 09:15 Dose: 5 mg Polyethylene Glycol (Miralax) 17 gm PO DAILY [facility] Last Admin: 05/31/19 23:00 Dose: 17 gm Senna/Docusate Sodium (Senna Plus) 2 tab PO DAILY [facility] Last Admin: 06/01/19 09:15 Dose: 2 tab Sodium Chloride (Saline Flush) 10 ml FLUSH ASDIRECTED PRN PRN Reason: Keep Vein Open Last Admin: 06/01/19 08:03 Dose: 10 ml Discontinued Medications Dexamethasone (Dexamethasone) 8 mg IVPUSH ONETIME ONE Stop: 05/31/19 00:29 Last Admin: 05/31/19 00:51 Dose: 8 mg Diazepam (Valium) 5 mg IVPUSH ONETIME ONE Stop: 05/30/19 23:21 Last Admin: 05/30/19 23:29 Dose: 5 mg Diazepam (Valium) 5 mg IVPUSH ONETIME ONE Stop: 05/31/19 00:18 Last Admin: 05/31/19 00:22 Dose: 5 mg Fentanyl (Sublimaze) 25 mcg IVPUSH Q1H PRN PRN Reason: Pain (severe 7-10) Last Admin: 05/31/19 12:40 Dose: 25 mcg Lactulose (Cephulac) 20 gm PO ONETIME ONE Stop: 05/31/19 21:47 Last Admin: 05/31/19 23:00 Dose: 20 gm Sodium Chloride (Saline Flush) 10 ml FLUSH ASDIRECTED PRN PRN Reason: Keep Vein Open Last Admin: 05/31/19 18:27 Dose: 10 ml Sodium Chloride (Saline Flush) 10 ml FLUSH ASDIRECTED PRN PRN Reason: Keep Vein Open - Exam General: Reports: Alert, Oriented HEENT: Reports: Pupils Equal, Pupils Reactive Neck: Reports: Supple Lungs: Reports: Clear to Auscultation, Normal Respiratory Effort Cardiovascular: Reports: Regular Rate, Regular Rhythm GI/Abdominal Exam: Normal Bowel Sounds, Non-Tender, No Organomegaly Back Exam: Reports: Muscle Spasm, Paraspinal Tenderness Extremities: Non-Tender, No Pedal Edema
[2019-06-01] MEDS: Lidocaine 5% 700 MG Patch TOP SCH (11:00)
[2019-06-01] MEDS: Polyethylene Glycol 3350 Powder 17 GM Packet PO SCH (11:01)
[2019-06-01 11:57] VITALS: BP 124/64; PULSE 79
== END 2019-06-01 11:20 ==
LOC: DL.ED 23:03 → DL.MS 05-31 00:34
PROVIDERS: ADMIT Hospitalist; ATTEND Hospitalist
DX: M54.5 Low back pain (principal); G89.29 Other chronic pain; R20.0 Anesthesia of skin; R20.2 Paresthesia of skin; T38.0X5A Adverse effect of glucocorticoids and synthetic analogues, initial encounter; E66.01 Morbid (severe) obesity due to excess calories; Z98.890 Other specified postprocedural states
CPT/HCPCS: 36415; 72148; 80053; 83605; 85025; 87040; 96372; 96374; 96375; 96376; 99285; A9270; G0378; J1100; J1650; J2270; J3010; J3360

== ENCOUNTER 2020-01-29 08:07 | Emergency (ER) | payer OTHER, MEDICAID ==
[~2020-01-29 08:07] MED LIST: Lactated Ringers 1,000 ML IV ONE
[2020-01-29] MEDS ORDERED: Lactated Ringers 1,000 ML IV ONE (08:08)
[2020-01-29] MEDS ORDERED: Norepinephrine 4 MG/4 ML SDV ONE (08:14)
[2020-01-29 08:16] LABS: CHLORIDE,CL 101 mmol/L (98-107); SODIUM,NA 138 mmol/L (136-145)
[2020-01-29] MEDS ORDERED: Norepinephrine 4 MG in Dextrose 5% in Water 246 ML IV SCH ×2 (08:30)
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
[2020-01-29 08:49] LABS: PTT,PARTIAL THROMBOPLSTIN TIME 22.5 SEC (22.0-34.0)
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
== END 2020-01-29 08:46 ==
LOC: DL.ED 08:07
DX: S01.81XA Laceration without foreign body of other part of head, initial encounter (principal); S61.412A Laceration without foreign body of left hand, initial encounter; F15.129 Other stimulant abuse with intoxication, unspecified; V49.50XA Passenger injured in collision with unspecified motor vehicles in traffic accident, initial encounter
CPT/HCPCS: 36415; 71045; 72170; 73590; 80053; 80305; 80307; 81001; 83605; 83880; 85025; 85610; 85730; 86850; 86900; 86901; 93005; 99285; J7120

== ENCOUNTER 2020-03-04 13:37 | Emergency (ER) | payer MEDICAID, OTHER ==
[2020-03-04 15:50] VITALS: BP 113/63; PULSE 89
--- NOTE | 2020-03-04 16:11 | CR ---
PROCEDURE INFORMATION: Exam: XR Chest, 1 View Exam date and time: 03/04/2020 3:55 PM Age: 44 years old Clinical indication: Chest pain TECHNIQUE: Imaging protocol: XR of the chest Views: 1 view. COMPARISON: CR Chest 1V Frontal 01/29/2020 8:12 AM FINDINGS: Lungs: Unremarkable. No consolidation. Pleural space: Unremarkable. No pleural effusion. No pneumothorax. Heart/Mediastinum: Unremarkable. No cardiomegaly. Bones/joints: Unremarkable. IMPRESSION: No acute findings.
[2020-03-04 16:21] LABS: CHLORIDE,CL 104 mmol/L (98-107); SODIUM,NA 138 mmol/L (136-145)
[2020-03-04 16:31] LABS: ACETAMINOPHEN 0 ug/mL (10-30 (Therapeutic))
[2020-03-04] MEDS ORDERED: Ondansetron 4 MG Tab.DIS PO ONE (16:31)
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
[2020-03-04] MEDS ORDERED: Iopamidol 755 Mg/ML 100 ML Bottle IVPUSH ONE (18:27)
--- NOTE | 2020-03-04 18:29 | US ---
PROCEDURE INFORMATION: Exam: US Duplex Lower Extremity Veins, Bilateral Exam date and time: 03/04/2020 5:29 PM Age: 44 years old Clinical indication: Edema, localized and swelling (edema) of limb; Lower extremity, bilateral; Additional info: D-dimer >4000, bilat le redness, swelling TECHNIQUE: Imaging protocol: Real-time duplex ultrasound of the extremities with 2-D coulter scale, color Doppler flow and spectral waveform analysis with image documentation. Complete exam focused on the bilateral lower extremity veins. COMPARISON: No relevant prior studies available. FINDINGS: Right deep veins: Unremarkable. The common femoral, femoral, proximal profunda femoral and popliteal veins are patent without thrombus. Normal Doppler waveforms. Normal compressibility and/or augmentation response. Right superficial veins: Saphenofemoral junction is patent without thrombus. Left deep veins: Unremarkable. The common femoral, femoral, proximal profunda femoral and popliteal veins are patent without thrombus. Normal Doppler waveforms. Normal compressibility and/or augmentation response. Left superficial veins: Saphenofemoral junction is patent without thrombus. Soft tissues: Soft tissue edematous changes noted bilaterally. Numerous varicosities are present. Popliteal cyst noted on the right measuring 3.8 x 1.4 cm. IMPRESSION: 1. No evidence of deep vein thrombosis. 2. Soft tissue edematous changes present bilaterally. 3. Right popliteal cyst.
--- NOTE | 2020-03-04 19:26 | CT ---
PROCEDURE INFORMATION: Exam: CT Chest With Contrast; Diagnostic Exam date and time: 03/04/2020 6:59 PM Age: 44 years old Clinical indication: Other: Pe study, d-dimer 4030; Additional info: Rule out pe, ddimer >4000 TECHNIQUE: Imaging protocol: Diagnostic computed tomography of the chest with intravenous contrast. Radiation optimization: All CT scans at this facility use at least one of these dose optimization techniques: automated exposure control; mA and/or kV adjustment per patient size (includes targeted exams where dose is matched to clinical indication); or iterative reconstruction. Contrast material: [id number]; Contrast volume: 85 ml; Contrast route: INTRAVENOUS (IV); COMPARISON: CR Chest 1V Frontal 03/04/2020 3:55 PM FINDINGS: Lungs: Unremarkable. No consolidation. No masses. Pleural space: There is no evidence of pneumothorax. Heart: Unremarkable. No cardiomegaly. No pericardial effusion. Pulmonary arteries: No evidence of pulmonary embolism. Aorta: No evidence of aortic dissection. Lymph nodes: There is no evidence of mediastinal or hilar lymphadenopathy. Bones/joints: The thoracic spine demonstrates mild degenerative changes at multiple levels. Soft tissues: Unremarkable. IMPRESSION: 1. No evidence of pulmonary embolism. 2. No evidence of aortic dissection.
[2020-03-04] MEDS ORDERED: Potassium Chloride 10 MEQ Tab.ER PO ONE (19:30)
[2020-03-04] MEDS ORDERED: Nitrofurantoin Monohydrate/Macrocrystalline 100 MG Cap PO ONE (19:32)
[2020-03-04] MEDS ORDERED: Ciprofloxacin 500 MG Tab PO ONE (19:35)
[2020-03-04] MEDS ORDERED: Bacitracin Oint 1 GM U/D Packet TOP ONE (19:36)
== END 2020-03-04 19:54 ==
LOC: DL.ED 13:37
DX: N30.00 Acute cystitis without hematuria (principal); F15.90 Other stimulant use, unspecified, uncomplicated; E87.6 Hypokalemia; Z20.828 Contact with and (suspected) exposure to other viral communicable diseases
CPT/HCPCS: 36415; 71045; 71260; 80053; 80305-QW; 80307; 81001; 83605; 85025; 85379; 85610; 86140; 87040; 87086; 93970; 99283; 99285-25; A9270-GY; Q9967; U0002

== ENCOUNTER 2020-03-06 11:19 | Emergency (ER) | payer MEDICAID, OTHER ==
[2020-03-06 11:39] VITALS: BP 110/58; PULSE 83
[2020-03-06] MEDS ORDERED: traMADol 50 MG Tab PO ONE (11:46)
--- NOTE | 2020-03-06 12:19 | CR ---
PROCEDURE INFORMATION: Exam: XR Right Knee Exam date and time: 03/06/2020 12:02 PM Age: 44 years old Clinical indication: Other: Pain in knee, worsening x2 days TECHNIQUE: Imaging protocol: XR Right knee. Views: 4 or more views. COMPARISON: CR Tibia Fibula Rt 01/29/2020 8:12 AM FINDINGS: Bones/joints: Tiny marginal osteophytes of the medial compartment and patellofemoral joint. Soft tissues: Normal. Other findings: Diffuse superficial varicosities. IMPRESSION: Mild d degenerative arthritis in the right knee.
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
== END 2020-03-06 12:53 | disposition home or self-care (01) ==
LOC: DL.ED 11:19
DX: M25.561 Pain in right knee (principal)
CPT/HCPCS: 73564; 99283; A9270

== ENCOUNTER 2023-05-13 01:05 | Emergency (ER) | payer MEDICAID ==
[2023-05-13 01:21] VITALS: BP 138/77; PULSE 82
[2023-05-13] MEDS: Take Home: Acetaminophen/HYDROcodone 325-5 MG, 5 Tab Pack PO ONE (02:05)
[2023-05-13] MEDS: Take Home: Amoxicillin/Clavulanate K 875-125 MG Tab, 6 Tab Pack PO ONE (02:05)
[2023-05-13] MEDS: Bupivacaine 0.5%/EPINEPHrine 1:200,000 10 ML SDV INJECT ONE (02:06)
[2023-05-13] MEDS: Bupivacaine 0.5% 30 ML SDV INJECT ONE (02:07)
== END 2023-05-13 02:30 | disposition home or self-care (01) ==
LOC: DL.ED 01:05
DX: K03.81 Cracked tooth (principal); K04.7 Periapical abscess without sinus; K02.9 Dental caries, unspecified; Z79.899 Other long term (current) drug therapy
CPT/HCPCS: 64400; 99282; 99283; A9270; J0665; J3490

== ENCOUNTER 2023-12-12 19:14 | Emergency (ER) | payer MEDICAID ==
[2023-12-12 19:33] VITALS: BP 152/84; PULSE 77
[2023-12-12] MEDS: Hydrocortisone/Neomycin/Polymyxin B Otic Susp 10 ML Bottle EARRT ONE (20:20)
== END 2023-12-12 20:28 | disposition home or self-care (01) ==
LOC: DL.ED 19:14
DX: H72.91 Unspecified perforation of tympanic membrane, right ear (principal); Z79.899 Other long term (current) drug therapy
CPT/HCPCS: 87081; 87430; 99283; A9270-GY

== ENCOUNTER 2024-07-07 10:58 | Emergency (ER) | payer MEDICAID ==
[2024-07-07 12:06] VITALS: BP 132/69; PULSE 53
== END 2024-07-07 12:22 | disposition home or self-care (01) ==
LOC: DL.ED 10:58
DX: S83.91XA Sprain of unspecified site of right knee, initial encounter (principal); Z79.899 Other long term (current) drug therapy; Z79.1 Long term (current) use of non-steroidal anti-inflammatories (NSAID); Z79.891 Long term (current) use of opiate analgesic; X50.1XXA Overexertion from prolonged static or awkward postures, initial encounter
CPT/HCPCS: 73562-RT; 99283